=== PATIENT | female | born 1940 | race Caucasian/White ===

== ENCOUNTER → 2023-01-27 13:15 | Outpatient (CLI) | payer MEDICARE, SELFPAY ==
--- NOTE | 2023-01-27 14:03 | XR_ITS ---
FINAL REPORT CLINICAL HISTORY: dyspnea FINDINGS: TWO VIEW CHEST Cardiomegaly is present. The patient is status post median sternotomy. A left subclavian pacemaker is present. There is a moderate right pleural effusion. There is mild right base atelectasis. There is no pneumothorax. IMPRESSION: Moderate right pleural effusion. Mild right base atelectasis. Reviewed, Interpreted and Dictated by Cody Peoples III, MD Transcribed by Mauro Overton Authenticated and [facility]
[2023-01-27 14:26] LABS: Basophils # 0.1 K/mm3 (0-0.2); Basophils % 0.5 % (0.1-2.0); Eosinophils # 0.3 K/mm3 (0.0-0.4); Hematocrit 33.5 % (37.0-47.0); Hemoglobin 10.1 g/dL (12.2-16.2); Lymphocytes # 1.7 K/mm3 (0.7-4.5); Lymphocytes % 16.9 % (10-50); Mean Corpuscular Hemoglobin 24.4 pg (27.0-31.2); Mean Corpuscular Volume 81.3 fl (81-99); Mean Platelet Volume 7.3 fl (7.4-10.4); Monocytes # 0.4 K/mm3 (0.1-1.0); Monocytes % 4.3 % (1.7-9.3); Neutrophils # 7.4 K/mm3 (1.8-7.8); Neutrophils % 75.3 % (37.0-80.0); Platelet Count 376 K/mm3 (142-424); Red Blood Count 4.12 M/mm3 (4.20-5.40); Red Cell Distribution Width 16.1 % (11.5-17.5); White Blood Count 9.9 K/mm3 (4.8-10.8)
[2023-01-27 15:00] LABS: Alanine Aminotransferase 12 U/L (12-78); Albumin Level 3.3 g/dl (3.5-5.0); Alkaline Phosphatase 98 U/L (38-126); Aspartate Amino Transferase 20 U/L (14-36); Bilirubin,Total 0.4 mg/dl (0.2-1.3); Blood Urea Nitrogen 12 mg/dl (7-17); Calcium 8.9 mg/dl (8.4-10.2); Carbon Dioxide 38 mmol/L (22.0-30.0); Chol/HDL Ratio 2.5 (1-3.5); Cholesterol 118 mg/dl (140-200); Estimated Glomerular Filt Rate 48 ml/min (>60); GFR (African American) 58 ML/MIN (>60); Glucose 88 mg/dl (74-100); HDL Cholesterol 48 mg/dl (40-60); Magnesium 1.7 mg/dl (1.6-2.3); Potassium 3.8 mmoL/L (3.5-5.1); Sodium 138 mmol/L (136-145); Total Protein,Serum 6.7 g/dl (6.3-8.2); Triglycerides 135 mg/dl (30-150); VLDL Cholesterol 27 mg/dL (0-40)
[2023-01-27 15:09] LABS: NT Pro Brain Natriuretic Pep. 1630 pg/mL (0-450)
[2023-01-27 15:11] LABS: Direct LDL Cholesterol 44.18 mg/dL (100-129)
[2023-01-27 15:31] LABS: Thyroid Stimulating Hormone 0.84 uIU/mL (0.465-4.68)
[2023-01-27 19:08] LABS: Anion Gap 8.8 mEq/L (5-15); Chloride 95 mmol/L (98-107)
[2023-01-28 00:03] LABS: Bilirubin,Direct 0.3 mg/dl (0.0-0.4); Bilirubin,Unconjugated 0.2 mg/dL (0.0-1.1)
[2023-01-28 00:04] LABS: Bilirubin,Indirect 0.1 mg/dL (0.0-0.9)
== END ==
PROVIDERS: Visit Provider Internal Medicine
DX: R06.00 Dyspnea, unspecified (principal); I50.9 Heart failure, unspecified; R07.9 Chest pain, unspecified; R94.31 Abnormal electrocardiogram [ECG] [EKG]; Z95.0 Presence of cardiac pacemaker; Z99.81 Dependence on supplemental oxygen
CPT/HCPCS: 36415; 71046; 80048; 80061; 80076; 83735; 83880; 84439; 84443; 85025

== ENCOUNTER → 2023-01-29 14:09 | Outpatient (CLI) | payer MEDICARE, SELFPAY | LOC: RT 14:09 | PROVIDERS: Visit Provider Internal Medicine | DX: I50.9 Heart failure, unspecified (principal); R06.00 Dyspnea, unspecified; R07.9 Chest pain, unspecified; R94.31 Abnormal electrocardiogram [ECG] [EKG]; Z95.0 Presence of cardiac pacemaker; Z99.81 Dependence on supplemental oxygen | CPT/HCPCS: 93306 ==

== ENCOUNTER → 2023-01-31 07:32 | Outpatient (CLI) | payer MEDICARE, SELFPAY | PROVIDERS: Visit Provider Internal Medicine | DX: R06.09 Other forms of dyspnea (principal) | CPT/HCPCS: 94060; 94726; 94729 ==

== ENCOUNTER 2023-02-01 18:27 | Emergency (ER) | payer MEDICARE, SELFPAY ==
[2023-02-01] VITALS (7 sets, daily range): BP systolic 124–147; BP diastolic 48–58; PULSE 60–73; RESP 14–19; TEMP 36.6; O2SAT 93–98; BMI 35.4
--- NOTE | 2023-02-01 18:38 | PC.NURSE ---
EMS reports giving 1 nitro and 324mg ASA. Patient states pre-medication pain 12/28. Post medication admin. 09/27
[2023-02-01 18:54] LABS: Basophils % 0.4 % (0.1-2.0); Eosinophils # 0.4 K/mm3 (0.0-0.4); Eosinophils % 4.2 % (0.1-12.0); Hematocrit 32.6 % (37.0-47.0); Hemoglobin 9.8 g/dL (12.2-16.2); Lymphocytes # 1.8 K/mm3 (0.7-4.5); Lymphocytes % 18.8 % (10-50); Mean Corpuscular Hemoglobin 24.2 pg (27.0-31.2); Mean Corpuscular Volume 80.7 fl (81-99); Mean Platelet Volume 7.2 fl (7.4-10.4); Monocytes # 0.5 K/mm3 (0.1-1.0); Monocytes % 5.5 % (1.7-9.3); Neutrophils # 6.9 K/mm3 (1.8-7.8); Neutrophils % 71.1 % (37.0-80.0); Platelet Count 344 K/mm3 (142-424); Red Blood Count 4.03 M/mm3 (4.20-5.40); Red Cell Distribution Width 16.4 % (11.5-17.5); White Blood Count 9.7 K/mm3 (4.8-10.8)
[2023-02-01 18:55] LABS: Chloride 92 mmol/L (98-107); Potassium 3.5 mmoL/L (3.5-5.1); Sodium 139 mmol/L (136-145)
[2023-02-01 18:57] LABS: Blood Urea Nitrogen 14 mg/dl (7-17); Creatinine Clearance Estimated 61 mL/min (50-200); Estimated Glomerular Filt Rate 43 ml/min (>60); GFR (African American) 52 ML/MIN (>60)
[2023-02-01 18:58] LABS: Alanine Aminotransferase 14 U/L (12-78); Albumin Level 3.2 g/dl (3.5-5.0); Albumin/Globulin Ratio 0.8 (1.1-1.8); Alkaline Phosphatase 95 U/L (38-126); Aspartate Amino Transferase 23 U/L (14-36); Bilirubin,Total 0.3 mg/dl (0.2-1.3); Calcium 8.4 mg/dl (8.4-10.2); Globulin 3.8 g/dL (1.3-3.2); Glucose 104 mg/dl (74-100)
--- NOTE | 2023-02-01 18:59 | XR_ITS ---
PROCEDURE INFORMATION: Exam: XR Chest Exam date and time: 02/01/2023 7:07 PM Age: 82 years old Clinical indication: Dyspnea; Prior surgery; Surgery date: <1 month; Surgery type: Pacemaker TECHNIQUE: Imaging protocol: Radiologic exam of the chest. Views: 1 view. Total images: 1 COMPARISON: CR XR CHEST 2V 01/27/2023 2:13 PM FINDINGS: Tubes, catheters and devices: Status post left subclavian cardiac pacer. Leads project in the right atrium and right ventricle respectively. Lungs: Similar right basilar atelectasis or consolidation. Increasing left basilar atelectasis. Suspect component of mild central vascular congestion. Similar right upper lobe fibrotic scarring, retraction and distortion. Pleural spaces: Stable moderate right pleural effusion. Suspect new small left pleural effusion. No pneumothorax. Biapical pleural thickening. Heart/Mediastinum: Stable mild cardiomegaly. No mediastinal widening. Vasculature: Atherosclerotic aortic arch. Bones/joints: Status post median sternotomy. Osteopenia. IMPRESSION: 1. Stable moderate right pleural effusion with adjacent basilar atelectasis or consolidation. 2. New or increasing small left pleural effusion. 3. Increasing left basilar atelectasis 4. Suspect new mild central vascular congestion/edema.
--- NOTE | 2023-02-01 18:59 | HMH.EDGENADL ---
Discharge Plan Disposition Patient Disposition: Home, Self-Care Prescriptions Prescriptions: No Action ipratropium-albuterol 0.5 mg-3 mg(2.5 mg base)/3 mL solution for nebulization 3 ml inhalation Q6H PRN ferrous sulfate 325 mg (65 mg iron) tablet 325 mg PO DAILY aspirin 81 mg tablet 81 mg PO DAILY budesonide-formoterol 80-4.5 mcg/actuation HFA aerosol inhaler 2 puff inhalation BID vitamin E (dl, acetate) 180 mg (400 unit) capsule 180 mg PO DAILY calcium carb,glucon-vitamin D2 500 mg-5 mcg (200 unit) tablet PO mecobalamin (vitamin B12) 5,000 mcg tablet,chewable 5,000 mcg PO DAILY apixaban 5 mg tablet 5 mg PO BID Qty: 60 5RF atorvastatin 40 mg tablet 40 mg PO DAILY Qty: 30 5RF bisoprolol fumarate 10 mg tablet 10 mg PO DAILY Qty: 30 3RF Farxiga 5 mg tablet 5 mg PO DAILY Qty: 30 5RF ezetimibe 10 mg tablet 10 mg PO DAILY Qty: 30 5RF metolazone 2.5 mg tablet 2.5 mg PO DAILY Qty: 30 2RF torsemide 20 mg tablet 20 mg PO DAILY Qty: 30 2RF Referrals Follow up/Referrals: Provider,Referral, MD [Primary Care Provider] - See instructions Activity Restrictions/Add. Instructions Additional Instructions/Restrictions: There is no evidence of an acute myocardial infarction or myocardial injury or any other cardiopulmonary emergency. Please follow-up with Dr. Mooney at your earliest convenience and return with any worsening shortness of breath chest pain or shoulder pain that you are concerned about. Clinical Impressions Clinical Impression: Acute shoulder pain Discharge ED Provider: Jaspreet Weber General Adult HPI General Chief complaint: Extremity Problem,Nontraumatic Stated complaint: Shoulder pain Time Seen by Provider: 02/01/23 18:53 Mode of Arrival: EMS Source of Information: Patient Limitations: No Limitations Description of Symptoms (Recalled from ER Triage Doc. by RN): Presents to ED with complaints of RUE pain that started at approx. 0730 this morning. Patient further reports having an SC in 2018. Aspirin 324mg and 1 nitro given MAT TESTER with relief. Patient denies SOB. Patient does report having a pacer and is on 3L NC at home. History of Present Illness HPI narrative: Patient is an 82-year-old female here with right shoulder pain that is since resolved. She is from [place] and is recently moved to the [facility]. She states that in 2018 when she had similar symptoms she was found to have an SC ultimately leading to a multivessel bypass which was done in [place]. Most recently she had a pacemaker that was placed by senior integration developer in [place]. She before today has been asymptomatic for an extended period of time and actually followed up with Dr. Mooney when she first moved here. She states that this morning around 7 AM she intermittently had some right arm achiness that became constant around 3 PM that lasted just up until her evaluation by me. She denies any chest pain shortness of breath diaphoresis nausea radiation etc. Symptoms are completely resolved at this point. No chest pain or shortness of breath or shoulder pain. This was nonexertional. Related Data Home Medications Medication Instructions Recorded Confirmed aspirin 81 mg tablet 81 mg PO DAILY 01/27/23 01/30/23 budesonide-formoterol HFA 80 2 puff inhalation BID 01/27/23 01/30/23 mcg-4.5 mcg/actuation aerosol inhaler calcium carb,calcium gluconate 500 tab PO 01/27/23 01/30/23 mg-vit D2 5 mcg (200 unit) tablet ferrous sulfate 325 mg (65 mg 325 mg PO DAILY 01/27/23 01/30/23 iron) tablet ipratropium 0.5 mg-albuterol 3 mg 3 ml inhalation Q6H PRN 01/27/23 01/30/23 (2.5 mg base)/3 mL nebulization soln mecobalamin (vitamin B12) 5,000 5,000 mcg PO DAILY 01/27/23 01/30/23 mcg chewable tablet vitamin E (dl, acetate) 180 mg 180 mg PO DAILY 01/27/23 01/30/23 (400 unit) capsule Previous Rx's Medication Instructions Recorded apixaban 5 mg tablet 5 m
--- NOTE | 2023-02-01 19:04 | ECG_ITS ---
APPROVED REPORT Exam: Resting ECG HR:68 bpm ECG Measurements Heart Rate [address] 172 P 208 QRSd 94 QRS 13 QT 388 T 31 QTc 406 Conclusion ELECTRONIC ATRIAL PACEMAKER ABNORMAL RHYTHM ECG UNCONFIRMED REPORT Electronically signed by : Ruben Johnson MD 02/02/2023 06:58:53
[2023-02-01 19:14] LABS: Anion Gap 5.5 mEq/L (5-15); Carbon Dioxide 45 mmol/L (22.0-30.0); Troponin I < 0.01 ng/ml (0.00-0.034)
--- NOTE | 2023-02-01 19:36 | PC.NURSE ---
Rounded on pt. Med list returned to pt. No other needs voiced.
--- NOTE | 2023-02-01 21:23 | PC.NURSE ---
Dr. Weber at BS speaking with pt/visitor
--- NOTE | 2023-02-01 21:44 | PC.NURSE ---
Second trop drawn and sent to LAB
[2023-02-01 22:30] LABS: Troponin I < 0.01 ng/ml (0.00-0.034)
== END 2023-02-01 22:54 | disposition home or self-care (01) ==
PROVIDERS: Emergency Provider Student in an Organized Health Care Education/Training Program
DX: M25.511 Pain in right shoulder (principal); I50.9 Heart failure, unspecified; D64.9 Anemia, unspecified; I25.2 Old myocardial infarction; Z95.0 Presence of cardiac pacemaker
CPT/HCPCS: 71045; 80053; 84484; 85025; 93005; 93041; 99285

== ENCOUNTER 2023-02-08 16:28 | Observation (INO) | payer MEDICARE, SELFPAY ==
[2023-02-08] VITALS (12 sets, daily range): BP systolic 67–127; BP diastolic 33–62; PULSE 60–80; RESP 18–20; TEMP 36.7–36.8; O2SAT 96–100; BMI 34.0; BMI 33.4
--- NOTE | 2023-02-08 16:46 | ECG_ITS ---
APPROVED REPORT Exam: Resting ECG HR:65 bpm ECG Measurements Heart Rate 65 AXES DE 187 P 253 QRSd 109 QRS 42 QT 349 T 31 QTc 361 Conclusion ELECTRONIC ATRIAL PACEMAKER ABNORMAL ECG UNCONFIRMED REPORT Electronically signed by : Ruben Johnson MD 02/09/2023 08:43:31
--- NOTE | 2023-02-08 16:54 | XR_ITS ---
PROCEDURE INFORMATION: Exam: XR Chest Exam date and time: 02/08/2023 4:58 PM Age: 82 years old Clinical indication: Other: Syncope TECHNIQUE: Imaging protocol: Radiologic exam of the chest. Views: 1 view. COMPARISON: CR XR CHEST PORTABLE 02/01/2023 7:07 PM FINDINGS: Tubes, catheters and devices: A pulse generator device is present, and its leads are in appropriate position. Lungs: There is diffuse prominence of the interstitial markings. Pleural spaces: Unchanged bilateral pleural effusions Heart/Mediastinum: Postoperative changes from prior coronary artery bypass graft. Cardiomegaly noted. Bones/joints: Sternotomy wires are intact. IMPRESSION: Findings can be attributed to interstitial edema in the appropriate clinical context.
--- NOTE | 2023-02-08 17:03 | CT_ITS ---
PROCEDURE INFORMATION: Exam: CT Head Without Contrast Exam date and time: 02/08/2023 5:36 PM Age: 82 years old Clinical indication: Injury or trauma; Fall; Blunt trauma (contusions or hematomas); Additional info: Fall anticoag TECHNIQUE: Imaging protocol: Computed tomography of the head without contrast. Radiation optimization: All CT scans at this facility use at least one of these dose optimization techniques: automated exposure control; mA and/or kV adjustment per patient size (includes targeted exams where dose is matched to clinical indication); or iterative reconstruction. REPORTING DATA: Count of CT and Cardiac NM exams in prior 12 months: This patient has received 0 known CTs and 0 known cardiac nuclear medicine studies in the 12 months prior to the current study. COMPARISON: No relevant prior studies available. FINDINGS: Brain: There is no evidence of acute intracranial hemorrhage, extra-axial collection or locoregional mass effect. There are scattered hypodensities in the periventricular and subcortical white matter. The appearance is nonspecific, but most likely represents chronic small vessel disease in a person of this age Cerebral ventricles: The ventricles, sulci and cisterns are normal in size and configuration for patient's age. No hydrocephalus or midline structure shift Pituitary gland and sella: Sellar/parasellar structures, craniocervical junction and orbits are unremarkable Paranasal sinuses: Scattered mucosal thickening throughout the paranasal sinuses. Mastoid air cells: Visualized mastoid air cells are well aerated. Bones/joints: No calvarial fracture Soft tissues: Unremarkable. IMPRESSION: No acute intracranial abnormality. No calvarial fracture.
--- NOTE | 2023-02-08 17:03 | CT_ITS ---
PROCEDURE INFORMATION: Exam: CT Cervical Spine Without Contrast Exam date and time: 02/08/2023 5:38 PM Age: 82 years old Clinical indication: Injury or trauma; Fall; Blunt trauma; Additional info: Fall anticoag TECHNIQUE: Imaging protocol: Computed tomography of the cervical spine without contrast. Radiation optimization: All CT scans at this facility use at least one of these dose optimization techniques: automated exposure control; mA and/or kV adjustment per patient size (includes targeted exams where dose is matched to clinical indication); or iterative reconstruction. REPORTING DATA: Count of CT and Cardiac NM exams in prior 12 months: This patient has received 0 known CTs and 0 known cardiac nuclear medicine studies in the 12 months prior to the current study. COMPARISON: CT HEAD/BRAIN WO CON 02/08/2023 5:36 PM FINDINGS: Bones/joints: Vertebral alignment is maintained. There is preservation of vertebral body heights. Facet joints are aligned. Odontoid process is intact. Atlantoaxial interval maintained. No acute fracture. Uncovertebral and facet arthropathy result in varying degrees of neural foraminal narrowing at multiple levels. Paranasal sinuses: Scattered mucosal thickening throughout the paranasal sinuses. Lungs: Interstitial changes noted in pulmonary apices Soft tissues: Prevertebral and paravertebral soft tissues are maintained IMPRESSION: No acute fracture. No traumatic subluxation.
--- NOTE | 2023-02-08 17:04 | HMH.EDGENADL ---
Discharge Plan Disposition Patient Disposition: Admitted Condition: Fair Chief Complaint: Syncope Prescriptions Prescriptions: No Action ipratropium-albuterol 0.5 mg-3 mg(2.5 mg base)/3 mL solution for nebulization 3 ml inhalation Q6H PRN ferrous sulfate 325 mg (65 mg iron) tablet 325 mg PO DAILY aspirin 81 mg tablet 81 mg PO DAILY budesonide-formoterol 80-4.5 mcg/actuation HFA aerosol inhaler 2 puff inhalation BID vitamin E (dl, acetate) 180 mg (400 unit) capsule 180 mg PO DAILY calcium carb,glucon-vitamin D2 500 mg-5 mcg (200 unit) tablet PO mecobalamin (vitamin B12) 5,000 mcg tablet,chewable 5,000 mcg PO DAILY apixaban 5 mg tablet 5 mg PO BID Qty: 60 5RF atorvastatin 40 mg tablet 40 mg PO DAILY Qty: 30 5RF bisoprolol fumarate 10 mg tablet 10 mg PO DAILY Qty: 30 3RF Farxiga 5 mg tablet 5 mg PO DAILY Qty: 30 5RF ezetimibe 10 mg tablet 10 mg PO DAILY Qty: 30 5RF metolazone 2.5 mg tablet 2.5 mg PO DAILY Qty: 30 2RF torsemide 20 mg tablet 20 mg PO DAILY Qty: 30 2RF Referrals Follow up/Referrals: Provider,Referral, MD [Primary Care Provider] - See instructions Clinical Impressions Clinical Impression: Acute hypokalemia, Syncope, vasovagal, Orthostasis Discharge ED Provider: Jaret Barrett General Adult HPI General Chief complaint: Syncope Stated complaint: syncope Time Seen by Provider: 02/08/23 17:02 Mode of Arrival: EMS Source of Information: Patient and EMS Limitations: No Limitations Description of Symptoms (Recalled from ER Triage Doc. by RN): c/o syncope x2 at home prior to arrival, states that her left FA above left eye she thinks she hit the floor with, denies any other injuries at this time. pacemaker placed 3 weeks ago History of Present Illness HPI narrative: Patient is a 82-year-old female with past medical history of recent pacemaker placement 3 weeks ago, CHF on diuretics who presents emergency department for evaluation of syncope. History provided by patient at bedside. Patient radha from a seated position on her way to the bathroom twice today when she had episodes of syncope falling to the ground. Unknown trauma. Patient denies any acute pain. She is on anticoagulants for her pacemaker. Currently just feels generally weak however no specific complaints. Denies abdominal pain, vomiting, chest pain, other acute complaints at this time. Per chart review of recent cardiology note patient was started on torsemide and metolazone recently. Related Data Home Medications Medication Instructions Recorded Confirmed aspirin 81 mg tablet 81 mg PO DAILY 01/27/23 01/30/23 budesonide-formoterol HFA 80 2 puff inhalation BID 01/27/23 01/30/23 mcg-4.5 mcg/actuation aerosol inhaler calcium carb,calcium gluconate 500 tab PO 01/27/23 01/30/23 mg-vit D2 5 mcg (200 unit) tablet ferrous sulfate 325 mg (65 mg 325 mg PO DAILY 01/27/23 01/30/23 iron) tablet ipratropium 0.5 mg-albuterol 3 mg 3 ml inhalation Q6H PRN 01/27/23 01/30/23 (2.5 mg base)/3 mL nebulization soln mecobalamin (vitamin B12) 5,000 5,000 mcg PO DAILY 01/27/23 01/30/23 mcg chewable tablet vitamin E (dl, acetate) 180 mg 180 mg PO DAILY 01/27/23 01/30/23 (400 unit) capsule Previous Rx's Medication Instructions Recorded apixaban 5 mg tablet 5 mg PO BID #60 tabs 01/27/23 atorvastatin 40 mg tablet 40 mg PO DAILY #30 tabs 01/27/23 bisoprolol fumarate 10 mg tablet 10 mg PO DAILY #30 tabs 01/27/23 dapagliflozin propanediol 5 mg 5 mg PO DAILY #30 tabs 01/27/23 tablet (Farxiga) ezetimibe 10 mg tablet 10 mg PO DAILY #30 tabs 01/27/23 metolazone 2.5 mg tablet 2.5 mg PO DAILY #30 tabs 01/28/23 torsemide 20 mg tablet 20 mg PO DAILY #30 tabs 01/28/23 Allergies Allergy/AdvReac Type Severity Reaction Status Date / Time prednisone AdvReac Verified 01/30/23 13:18 [facility] Disclaimer: The information contained in this section
[2023-02-08 17:12] LABS: Basophils # 0.1 K/mm3 (0-0.2); Basophils % 0.4 % (0.1-2.0); Eosinophils # 0.3 K/mm3 (0.0-0.4); Hematocrit 34.8 % (37.0-47.0); Hemoglobin 10.8 g/dL (12.2-16.2); Lymphocytes # 1.7 K/mm3 (0.7-4.5); Mean Corpuscular HGB Conc 31.1 g/dL (31.8-35.4); Mean Corpuscular Hemoglobin 24.4 pg (27.0-31.2); Mean Corpuscular Volume 78.3 fl (81-99); Mean Platelet Volume 7.7 fl (7.4-10.4); Monocytes # 0.9 K/mm3 (0.1-1.0); Monocytes % 6.7 % (1.7-9.3); Neutrophils # 9.9 K/mm3 (1.8-7.8); Neutrophils % 77.9 % (37.0-80.0); Platelet Count 418 K/mm3 (142-424); Red Blood Count 4.44 M/mm3 (4.20-5.40); Red Cell Distribution Width 16.2 % (11.5-17.5); White Blood Count 12.7 K/mm3 (4.8-10.8)
[2023-02-08 17:19] LABS: Alanine Aminotransferase 14 U/L (12-78); Albumin Level 3.5 g/dl (3.5-5.0); Albumin/Globulin Ratio 0.9 (1.1-1.8); Alkaline Phosphatase 111 U/L (38-126); Aspartate Amino Transferase 26 U/L (14-36); Bilirubin,Total 0.8 mg/dl (0.2-1.3); Blood Urea Nitrogen 35 mg/dl (7-17); Calcium 8.8 mg/dl (8.4-10.2); Chloride 77 mmol/L (98-107); Creatinine Clearance Estimated 44 mL/min (50-200); Estimated Glomerular Filt Rate 31 ml/min (>60); GFR (African American) 38 ML/MIN (>60); Glucose 121 mg/dl (74-100); Sodium 134 mmol/L (136-145); Total Protein,Serum 7.5 g/dl (6.3-8.2)
--- NOTE | 2023-02-08 17:27 | PC.NURSE ---
Addendum entered by Eve Mckeon RN 02/08/23 17:27: bs Original Note: rounded on pt, family at bw
[2023-02-08 17:28] LABS: Anion Gap 11.4 mEq/L (5-15); Carbon Dioxide 48 mmol/L (22.0-30.0)
[2023-02-08 17:29] LABS: Potassium 2.4 mmoL/L (3.5-5.1)
--- NOTE | 2023-02-08 17:29 | PC.NURSE ---
aware of K+ of 2.4
[2023-02-08 17:30] LABS: Troponin I 0.02 ng/ml (0.00-0.034)
--- NOTE | 2023-02-08 18:06 | PC.NURSE ---
called house for admission
--- NOTE | 2023-02-08 18:48 | PC.NURSE ---
report called to gildardo barba on second floor
--- NOTE | 2023-02-08 18:51 | ECG_ITS ---
APPROVED REPORT Exam: Resting ECG HR:98 bpm ECG Measurements Heart Rate 98 AXES QRSd 113 QRS 50 QT 301 T 4 QTc 357 Conclusion ATRIAL FIBRILLATION WITH ABERRANT CONDUCTION OR VENTRICULAR PREMATURE COMPLEXES Old inferior changes Patient with prior history of pacemaker and apparent electronic interference/artifact-questionable pacemaker malfunction? ABNORMAL ECG UNCONFIRMED REPORT Electronically signed by : Ruben Johnson MD 02/09/2023 08:43:07
--- NOTE | 2023-02-08 18:57 | PC.NURSE ---
Dr Barrett speaking to Dr Mooney
--- NOTE | 2023-02-08 19:50 | PC.NURSE ---
1900 RECEIVED REPORT FROM Dante SEVERINO RN/MED SURG WHO RECEIVED REPORT FROM ED NURSE. PATIENT ARRIVED TO THE FLOOR AT 1950 PER W/C.
--- NOTE | 2023-02-08 19:52 | PC.NURSE ---
Pt arrived to floor via wheelchair @ 1948
[2023-02-08 20:09] LABS: Blood Urea Nitrogen 33 mg/dl (7-17); Calcium 8.4 mg/dl (8.4-10.2); Chloride 77 mmol/L (98-107); Creatinine Clearance Estimated 41 mL/min (50-200); Estimated Glomerular Filt Rate 29 ml/min (>60); GFR (African American) 35 ML/MIN (>60); Glucose 159 mg/dl (74-100); Sodium 134 mmol/L (136-145)
[2023-02-08 20:17] LABS: Anion Gap 9.8 mEq/L (5-15)
[2023-02-08 20:18] LABS: Potassium 2.8 mmoL/L (3.5-5.1)
[2023-02-08 20:19] LABS: Carbon Dioxide 50 mmol/L (22.0-30.0)
--- NOTE | 2023-02-08 20:45 | EXP.HP ---
History of Present Illness *Admission Date: 02/08/23 *Reason for visit:: syncope/hypokalemia *History of present illness: 82 year old female presented to the ED today after falling twice today. PMHX of recent PPM placement, CHF, blood thinner use, HLD, HTN, COPD, and Anemia. The patient states she fell twice while standing up. She was recently started on torsemide and metolazone. Pt c/o hitting head during fall. ED work consisted of CT of head spine, basic blood work, cardiac work up and orthostatic blood pressures. Her head and spine CT was unremarkable for trauma or hemorrhage. Blood work revealed leukocytosis, anemia, hypokalemia, LAURA, and negative troponins. Her EKG demonstrates atrial pacemaker w/ tachycardia. She is orthostatic positive with BP dropping to 67/33 when changing positions from sitting to standing. She was given potassium replacement therapy and the ED physician spoke with the hospitalist team regrading admission. She was admitted to the medical floor. Denies any pain and appears to be in no acute distress. Will have cardiology consult placed, monitor BMP, and be in fall precautions. [facility] Disclaimer: The information contained in this section may have been updated after the patient was seen, as this information can be updated by other users. Medical History (Updated 02/08/23 @ 21:10 by CURTIS Nix) Abnormal electrocardiogram [ECG] [EKG] Anemia Basal cell carcinoma Cardiac pacemaker in situ Cataract Chest pain CHF (congestive heart failure) Dependence on continuous supplemental oxygen Dyspnea Pain of left great toe Family History (Updated 02/08/23 @ 20:14 by Talita Estes RN) Mother Family history of hypertension Basal cell adenoma Brother Family history of hypertension Other Family history of cancer Social History (Updated 02/08/23 @ 20:16 by Talita Estes RN) Smoking Status: Former smoker alcohol intake: never current occupational status: retired Travel in the last 8 weeks: None adopted: No caregiver/support person: Yes (aman louis/sachin) Review of Systems Review of Systems Review of systems:: pertinent systems reviewed and negative unless documented below Constitutional Constitutional: Reports system reviewed and no additional complaints, except as documented and Reports as per HPI Eyes Eyes: Reports system reviewed and no additional complaints, except as documented ENT Ears, Nose, Mouth, and Throat: Reports system reviewed and no additional complaints, except as documented *Cardiovascular Cardiovascular: Reports system reviewed and no additional complaints, except as documented and Denies chest pain *Respiratory Respiratory: Reports system reviewed and no additional complaints, except as documented *Gastrointestinal Gastrointestinal: Reports system reviewed and no additional complaints, except as documented *Genitourinary Genitourinary: Reports system reviewed and no additional complaints, except as documented *Musculoskeletal Musculoskeletal: Reports as per HPI Integumentary/Breasts Skin/Breast: Reports system reviewed and no additional complaints, except as documented *Neurologic Neurologic: Reports system reviewed and no additional complaints, except as documented Meds Home Medications and Allergies Home Medications Medication Instructions Recorded Confirmed Type aspirin 81 mg tablet 81 mg PO DAILY heart 01/27/23 02/08/23 History budesonide-formoterol HFA 80 2 puff inhalation BID SOA\ 01/27/23 02/08/23 History mcg-4.5 mcg/actuation aerosol inhaler calcium carb,calcium gluconate 500 tab PO 01/27/23 01/30/23 History mg-vit D2 5 mcg (200 unit) tablet ferrous sulfate 325 mg (65 mg 325 mg PO DAILY anemia 01/27/23 02/08/23 History iron) tablet ipratropium 0.5 mg-albuterol 3 mg 3 ml inhalation Q6H PRN SOA 01/27/23 02/08/23 History (2.5 mg base)/3 mL nebulization soln mecobalamin (vitamin B12) 5,000 5,000 mcg PO DAILY b12 deficient 0
[2023-02-08 20:50] LABS: Troponin I 0.02 ng/ml (0.00-0.034)
--- NOTE | 2023-02-08 21:04 | PC.NURSE ---
LAB REPORTS CRITICAL LABS: POTASSIUM 2.8 AND C02 50. RADHA LARIOS NOTIFIED.
[2023-02-08 23:45] LABS: Troponin I 0.02 ng/ml (0.00-0.034)
[2023-02-09] VITALS (14 sets, daily range): BP systolic 120–151; BP diastolic 44–84; PULSE 60–77; RESP 16–18; TEMP 36.6–36.8; O2SAT 94–98; BMI 34.6
[2023-02-09 00:22] LABS: Chloride 80 mmol/L (98-107); Sodium 136 mmol/L (136-145)
[2023-02-09 00:25] LABS: Blood Urea Nitrogen 36 mg/dl (7-17); Calcium 8.2 mg/dl (8.4-10.2); Creatinine Clearance Estimated 43 mL/min (50-200); Estimated Glomerular Filt Rate 31 ml/min (>60); GFR (African American) 38 ML/MIN (>60); Glucose 156 mg/dl (74-100)
[2023-02-09 00:35] LABS: Anion Gap 10.9 mEq/L (5-15); Carbon Dioxide 48 mmol/L (22.0-30.0)
[2023-02-09 00:36] LABS: Potassium 2.9 mmoL/L (3.5-5.1)
--- NOTE | 2023-02-09 00:49 | PC.NURSE ---
LAB CALLED CRITICAL LABS: POTASSIUM 2.9 AND C02 48. LABS REPORTED TO RADHA Leahy
--- NOTE | 2023-02-09 01:03 | PC.NURSE ---
PATIENT DECLINED NEB TREATMENTS Earlier. recieved potassium 20meq/100 ml IVPB 2 RUNS TOTAL. ICE PACK HAD TO BE APPLIED TO ARM DUE TO PAIN CAUSED BY THE POTASSIUM EVEN THOUGH RUN CONCURRENTLY WITH LR. 02 SAT 94% ON 3LNC. NO RESP DISTRESS NOTED. RESTING QUIETLY AT THIS TIME
[2023-02-09 03:23] LABS: Chloride 85 mmol/L (98-107); Sodium 134 mmol/L (136-145)
[2023-02-09 03:26] LABS: Blood Urea Nitrogen 33 mg/dl (7-17); Creatinine Clearance Estimated 46 mL/min (50-200); Estimated Glomerular Filt Rate 33 ml/min (>60); GFR (African American) 40 ML/MIN (>60)
[2023-02-09 03:27] LABS: Calcium 8.1 mg/dl (8.4-10.2); Glucose 101 mg/dl (74-100); Magnesium 1.9 mg/dl (1.6-2.3)
[2023-02-09 03:35] LABS: Carbon Dioxide 40 mmol/L (22.0-30.0)
--- NOTE | 2023-02-09 03:39 | PC.NURSE ---
LAB CALLED WITH CRITICAL LAB VALUE POTASSIUM 3.0. Brenton LARIOS.Ita. NOTIFIED.
[2023-02-09 07:36] LABS: Blood Urea Nitrogen 30 mg/dl (7-17); Chloride 85 mmol/L (98-107); Creatinine Clearance Estimated 47 mL/min (50-200); Estimated Glomerular Filt Rate 33 ml/min (>60); GFR (African American) 40 ML/MIN (>60); Glucose 98 mg/dl (74-100); Sodium 137 mmol/L (136-145)
[2023-02-09 07:39] LABS: Basophils % 0.3 % (0.1-2.0); Eosinophils # 0.4 K/mm3 (0.0-0.4); Eosinophils % 3.8 % (0.1-12.0); Lymphocytes # 1.8 K/mm3 (0.7-4.5); Lymphocytes % 18.6 % (10-50); Mean Corpuscular HGB Conc 30.2 g/dL (31.8-35.4); Mean Corpuscular Hemoglobin 24.3 pg (27.0-31.2); Mean Corpuscular Volume 80.5 fl (81-99); Mean Platelet Volume 7.5 fl (7.4-10.4); Monocytes # 0.7 K/mm3 (0.1-1.0); Monocytes % 7.3 % (1.7-9.3); Neutrophils # 6.9 K/mm3 (1.8-7.8); Platelet Count 306 K/mm3 (142-424); Red Blood Count 3.85 M/mm3 (4.20-5.40); Red Cell Distribution Width 16.2 % (11.5-17.5); White Blood Count 9.8 K/mm3 (4.8-10.8)
[2023-02-09 07:51] LABS: Anion Gap 4.9 mEq/L (5-15)
[2023-02-09 07:52] LABS: Carbon Dioxide 50 mmol/L (22.0-30.0); Potassium 2.9 mmoL/L (3.5-5.1)
[2023-02-09 07:53] LABS: Hemoglobin 9.5 g/dL (12.2-16.2)
[2023-02-09 08:35] LABS: Microscopic, Urine URINE MICROSCOPIC (MICROSCOPIC)
[2023-02-09 08:40] LABS: Appearance,Urine CLEAR (Clear); Bilirubin,Urine Negative (Negative); Blood, Urine Negative (Negative); Color,Urine YELLOW (Yellow); Glucose,Urine (UA) 2+ (Negative); Ketones,Urine Negative (Negative); Leukocyte Esterase,Urine 1+ (Negative); Nitrate,Urine Negative (Negative); PH,Urine 6.5 (5.0-8.5); Protein,Urine Negative (Negative)
[2023-02-09 08:54] LABS: Bacteria,Urine 1+ /lpf; Squamous Epithelial Cell,Urine Occasional #/hpf (0-5); Yeast,Urine 1+ /lpf
[2023-02-09 11:57] LABS: POC Glucose,Bedside 129 (70-110)
--- NOTE | 2023-02-09 13:42 | EXP.ACUTE.PN ---
Subjective *Date: 02/09/23 *Time: 13:42 Interval history: No overnight episode of lightheadedness or postural dizziness or syncope Patient states she feels better today. No palpitations or chest pain Medical Exam Vital signs and Labs for Last 24 Hours: Vital Signs Temp Pulse Pulse Pulse Pulse Pulse Resp 02/09/23 11:55 74 02/09/23 11:55 70 02/09/23 11:55 02/09/23 11:00 02/09/23 10:53 98.2 F 61 18 02/09/23 08:00 02/09/23 09:00 02/09/23 06:20 60 02/09/23 06:20 62 02/09/23 06:20 02/09/23 07:18 98.3 F 69 16 02/09/23 06:23 02/09/23 05:00 02/09/23 04:00 97.8 F 60 18 02/09/23 04:00 60 02/09/23 03:00 02/09/23 01:00 02/09/23 00:00 97.8 F 60 16 02/09/23 00:00 62 02/08/23 23:00 02/08/23 21:00 02/08/23 20:00 02/08/23 20:00 60 02/08/23 19:55 98.2 F 60 20 02/08/23 19:47 98.1 F 68 18 02/08/23 18:30 67 02/08/23 18:17 61 02/08/23 18:03 62 18 02/08/23 17:12 80 02/08/23 17:10 71 02/08/23 17:09 73 02/08/23 16:45 75 02/08/23 17:20 73 71 80 02/08/23 16:28 98.1 F 61 18 BP BP BP BP BP Pulse Ox O2 Del Method 02/09/23 11:55 02/09/23 11:55 02/09/23 11:55 97 Nasal Cannula 02/09/23 11:00 Nasal Cannula 02/09/23 10:53 125/49 L 98 Nasal Cannula 02/09/23 08:00 Nasal Cannula 02/09/23 09:00 Nasal Cannula 02/09/23 06:20 02/09/23 06:20 02/09/23 06:20 98 Nasal Cannula 02/09/23 07:18 124/55 L 97 Nasal Cannula 02/09/23 06:23 Nasal Cannula 02/09/23 05:00 Nasal Cannula 02/09/23 04:00 129/57 L 94 L Nasal Cannula 02/09/23 04:00 02/09/23 03:00 Nasal Cannula 02/09/23 01:00 Nasal Cannula 02/09/23 00:00 151/68 H 94 L Room Air 02/09/23 00:00 02/08/23 23:00 Nasal Cannula 02/08/23 21:00 Nasal Cannula 02/08/23 20:00 99 Nasal Cannula 02/08/23 20:00 02/08/23 19:55 103/62 L 99 Nasal Cannula 02/08/23 19:47 121/54 L 02/08/23 18:30 121/50 L 100 Room Air 02/08/23 18:17 127/52 L 98 Room Air 02/08/23 18:03 125/50 L 98 02/08/23 17:12 67/33 L 97 Nasal Cannula 02/08/23 17:10 98/44 L 98 Nasal Cannula 02/08/23 17:09 123/52 L 97 Nasal Cannula 02/08/23 16:45 122/46 L 96 Nasal Cannula 02/08/23 17:20 123/52 L 98/44 L 67/33 L 02/08/23 16:28 122/46 L 97 Room Air O2 Flow Rate 02/09/23 11:55 02/09/23 11:55 02/09/23 11:55 3 02/09/23 11:00 3 02/09/23 10:53 3 02/09/23 08:00 3 02/09/23 09:00 3 02/09/23 06:20 02/09/23 06:20 02/09/23 06:20 3 02/09/23 07:18 3 02/09/23 06:23 3 02/09/23 05:00 3 02/09/23 04:00 3 02/09/23 04:00 02/09/23 03:00 3 02/09/23 01:00 3 02/09/23 00:00 02/09/23 00:00 02/08/23 23:00 3 02/08/23 21:00 3 02/08/23 20:00 3 02/08/23 20:00 02/08/23 19:55 3 02/08/23 19:47 02/08/23 18:30 02/08/23 18:17 02/08/23 18:03 02/08/23 17:12 3 02/08/23 17:10 3 02/08/23 17:09 3 02/08/23 16:45 3 02/08/23 17:20 02/08/23 16:28 Intake and Output 02/08/23 02/09/23 02/09/23 23:59 07:59 15:59 Intake Total 850 / 1241 1270 / 1630 360 / 1630 Output Total 300 / 300 Balance 850 / 1241 1270 / 1330 60 / 1330 Intake: Intake, Oral Amount 360 / 720 360 / 720 Intake, Other Amount 250 / 250 Intake, Total IV Amount 600 / 991 910 / 910 KCl 20mEq/100ml 100 ml @ 50 mls 100 / 200 100 / 100 /hr IV Q2H TENISHA Rx#:[id number] Lactated Ringers 1000ML 1,000 500 / 791 810 / 810 ml @ 500 mls/hr IV .Q2H TENISHA Rx# :[id number] Output: Output, Urine Amount 300 / 300 Other: Intake, Other Source Saline Solution Number of Unmeasured Voids 0 Weight 96.615 kg 9
--- NOTE | 2023-02-09 17:25 | PC.NURSE ---
PT IS RESTING IN BED. ALERT AND ORIENTED X4. EATING AND DRINKING WELL. LUNG SOUNDS DIMINISHED WITH LEFT SIDED CRACKLES. ABDOMEN SOFT/NON TENDER WITH ACTIVE BOWEL SOUNDS. PT HAS BEEN GETTING TO THE BSC WITH 1 ASSIST. PT STATES SHE STILL FEELS DIZZY WHEN STANDING. O2 SATURATION HAS MAINTAINED 90-95% ON 3 L NC. WILL CONTINUE TO MONITOR.
[2023-02-09 18:37] LABS: Blood Urea Nitrogen 25 mg/dl (7-17); Calcium 8.2 mg/dl (8.4-10.2); Chloride 88 mmol/L (98-107); Creatinine Clearance Estimated 51 mL/min (50-200); Estimated Glomerular Filt Rate 36 ml/min (>60); GFR (African American) 44 ML/MIN (>60); Glucose 148 mg/dl (74-100); Potassium 3.6 mmoL/L (3.5-5.1); Sodium 134 mmol/L (136-145)
[2023-02-09 18:45] LABS: Anion Gap 4.6 mEq/L (5-15); Carbon Dioxide 45 mmol/L (22.0-30.0)
[2023-02-10] VITALS (8 sets, daily range): BP systolic 131–148; BP diastolic 42–63; PULSE 60–80; RESP 16–22; TEMP 36.4–36.8; O2SAT 97–99; BMI 36.2
--- NOTE | 2023-02-10 04:34 | PC.NURSE ---
Patient has had a good night. Only issues RN had to increase NC to 4L NC. Patient dropped while asleep. no other issues have been noted by RN or patient
--- NOTE | 2023-02-10 06:01 | PC.NURSE ---
Pt refused a bath stated she would like to wait until after breakfast this AM
[2023-02-10 06:29] LABS: Blood Urea Nitrogen 20 mg/dl (7-17); Calcium 8.3 mg/dl (8.4-10.2); Chloride 91 mmol/L (98-107); Creatinine Clearance Estimated 57 mL/min (50-200); Estimated Glomerular Filt Rate 39 ml/min (>60); GFR (African American) 48 ML/MIN (>60); Glucose 100 mg/dl (74-100); Potassium 3.6 mmoL/L (3.5-5.1); Sodium 137 mmol/L (136-145)
[2023-02-10 06:33] LABS: Anion Gap 9.6 mEq/L (5-15)
[2023-02-10 06:55] LABS: Carbon Dioxide 48 mmol/L (22.0-30.0)
--- NOTE | 2023-02-10 09:00 | PC.NURSE ---
Attempted to titrate O2 down due to sats 97% on 3L. Pt declined and stated that she wears 3L @ home and O2 drops when she gets up to walk.
--- NOTE | 2023-02-10 09:26 | PC.NURSE ---
Courtesy Tech Note: rounded on pt. pt did not need any further assistance at his time.
--- NOTE | 2023-02-10 12:08 | EXP.CARD.CON ---
History of Present Illness History of Present Illness Consult date: 02/10/23 Requesting physician: Peña Amato Chief complaint: falls x2, syncope History of present illness: This is an 82-year-old white female presented to the emergency department after passing out and falling twice at home. The patient states that she was walking to the bathroom on both occasions where she just woke up on the floor. She states that she had no symptoms prior to the fall. She did hit her head during both of the falls. The patient reports that she was recently started on torsemide and metolazone. The patient was anemic, hypokalemic and had an acute kidney injury while in the emergency department. CT of her head and spine were unremarkable. She ruled out for an MN. The patient was orthostatic in the emergency department with her blood pressure dropping to 67/33 when she went from sitting to standing. The patient's diuretics have been held since she has been admitted. This morning she states that she is feeling great. She denies any chest pain or pressure. She denies any shortness of breath or edema. She denies any fever, chills, nausea, vomiting, diarrhea, PND orthopnea. She has had no dizziness or recurrent episodes of syncope. [facility] Disclaimer: The information contained in this section may have been updated after the patient was seen, as this information can be updated by other users. Medical History (Updated 02/10/23 @ 12:15 by Carmel Mukherjee APRN) Abnormal electrocardiogram [ECG] [EKG] Anemia Basal cell carcinoma Cardiac pacemaker in situ Cataract Chest pain CHF (congestive heart failure) Dependence on continuous supplemental oxygen Dyspnea Pain of left great toe Family History (Updated 02/08/23 @ 20:14 by Talita Estes RN) Mother Family history of hypertension Basal cell adenoma Brother Family history of hypertension Other Family history of cancer Social History (Updated 02/08/23 @ 20:16 by Talita Estes RN) Smoking Status: Former smoker alcohol intake: never current occupational status: retired Travel in the last 8 weeks: None adopted: No caregiver/support person: Yes (aman louis/grandson) Review of Systems Review of Systems Review of systems:: pertinent systems reviewed and negative unless documented below Constitutional Constitutional: Reports system reviewed and no additional complaints, except as documented and Reports frequent falls Eyes Eyes: Reports system reviewed and no additional complaints, except as documented ENT Ears, Nose, Mouth, and Throat: Reports system reviewed and no additional complaints, except as documented and Denies vertigo *Cardiovascular Cardiovascular: Reports system reviewed and no additional complaints, except as documented, Denies chest pain, Denies dyspnea and Reports syncope *Respiratory Respiratory: Reports system reviewed and no additional complaints, except as documented and Denies dyspnea *Gastrointestinal Gastrointestinal: Reports system reviewed and no additional complaints, except as documented *Genitourinary Genitourinary: Reports system reviewed and no additional complaints, except as documented *Musculoskeletal Musculoskeletal: Reports system reviewed and no additional complaints, except as documented Integumentary/Breasts Skin/Breast: Reports system reviewed and no additional complaints, except as documented *Neurologic Neurologic: Reports system reviewed and no additional complaints, except as documented, Reports frequent falls, Reports syncope and Denies vertigo Psychiatric Psychiatric: Reports system reviewed and no additional complaints, except as documented Endocrine Endocrine: Reports system reviewed and no additional complaints, except as documented Hematologic/Lymphatic Hematologic/Lymphatic: Reports system reviewed and no additional complaints, except as documented Allergic/Immunologic Allergic/Immunologic: Reports system reviewed and no additional comp
--- NOTE | 2023-02-10 14:27 | PC.NURSE ---
PT left AMA at 1330. Pt was educated prior to leaving. Pt has prior MD appointments made with director hematology this she stated. Pt was educated to keep appointment and to followup with a pcp. Pt stated she needed to leave because her son had to go to work and she wouldn't have a ride later. MD made aware.
--- NOTE | 2023-02-10 17:12 | EXP.DC.SUM ---
General Admission date:: 02/08/23 Discharge date: 02/10/23 HPI HPI HPI: 82 year old female presented to the ED today after falling twice today. PMHX of recent PPM placement, CHF, blood thinner use, HLD, HTN, COPD, and Anemia. The patient states she fell twice while standing up. She was recently started on torsemide and metolazone. Pt c/o hitting head during fall. ED work consisted of CT of head spine, basic blood work, cardiac work up and orthostatic blood pressures. Her head and spine CT was unremarkable for trauma or hemorrhage. Blood work revealed leukocytosis, anemia, hypokalemia, LAURA, and negative troponins. Her EKG demonstrates atrial pacemaker w/ tachycardia. She is orthostatic positive with BP dropping to 67/33 when changing positions from sitting to standing. She was given potassium replacement therapy and the ED physician spoke with the hospitalist team regrading admission. She was admitted to the medical floor. Denies any pain and appears to be in no acute distress. Will have cardiology consult placed, monitor BMP, and be in fall precautions. Hospital Course Hospital Course Hospital Course: She was admitted for syncopal event. Blood pressure improved after fluid resuscitation. Kidney function improved with fluid resuscitation. Cardiology was consulted, problems addressed as follows: 1. The patient presented to the emergency department after having a syncopal episode and falling twice. The patient states that she was recently started on metolazone and torsemide and just has been feeling a little weak since that time. The patient was orthostatic with her blood pressure dropping to 67/33 when going from sitting to standing and she was severely dehydrated with an LAURA and hypokalemia. All of the patient's diuretics have been held and her blood pressure has now improved and is stable. Creatinine improved to 1.3 on day of discharge. Potassium was replaced and normal at 3.6 on day of discharge. Continue to hold diuretics. Unfortunately, patient left before being seen by primary team as she stated she could not stay to wait to be examined. Plan was to discharge however she could not wait until team could see her. Resume home regimens except for diuretics. Plan for close follow-up with cardiology. Adjustment to further medications per outpatient team. Exam Data for Last 24 hours Vital signs and Labs for Last 24 Hours: Temp Pulse Resp BP Pulse Ox O2 Del Method O2 Flow Rate 97.6 F 70 18 134/61 97 Nasal Cannula 3 02/10/23 11:48 02/10/23 12:00 02/10/23 11:48 02/10/23 11:48 02/10/23 11:48 02/10/23 13:00 02/10/23 13:00 FiO2 32 02/09/23 18:57 Laboratory Results - last 24 hr 02/09/23 18:07: Sodium 134 L, Potassium 3.6 D, Chloride 88 L, Carbon Dioxide 45 H*, Anion Gap 4.6 L, BUN 25 H, Creatinine 1.40 H, Estimated Creat Clear 51, Estimated GFR 36 L, Est GFR ( Amer) 44 L, Glucose 148 H D, Calcium 8.2 L 02/10/23 05:42: Sodium 137, Potassium 3.6, Chloride 91 L, Carbon Dioxide 48 H*, Anion Gap 9.6, BUN 20 H, Creatinine 1.30 H, Estimated Creat Clear 57, Estimated GFR 39 L, Est GFR ( Amer) 48 L, Glucose 100 D, Calcium 8.3 L I & O for Last 24 hours: Intake & Output 02/07/23 02/08/23 02/09/23 02/10/23 23:59 23:59 23:59 23:59 Intake Total 850 / 1241 2976 / 2976 360 / 360 Output Total 900 / 900 1000 / 1000 Balance 850 / 1241 2076 / 2076 -640 / -640 Weight 96.615 kg 99.972 kg 104.825 kg Microbiology Reports for the Last 24 Hours: Microbiology 02/08/23 07:52 Urine,Clean Catch Urine Culture - Preliminary NO GROWTH AFTER 24 HOURS Constitutional Comments: Patient left before able to examine. Results Data Completed and Pending Labs on day of discharge: Labs from last 24 hours 02/10/23 02/09/23 05:42 18:07 Sodium 137 134 L Potassium 3.6 3.6 D Chloride 91 L 88 L Carbon Dioxide 48 H* 45 H* Anion Gap 9.6 4.6 L BUN 20 H 25 H Crea
== END 2023-02-10 13:30 | disposition left against medical advice (07) ==
LOC: ER 18:33 → 2ND 18:39
PROVIDERS: Nurse Practitioner Critical Care Medicine; Admitting Provider Internal Medicine; Emergency Provider Emergency Medicine; Visit Provider Internal Medicine
DX: R55 Syncope and collapse (principal); E87.6 Hypokalemia; N17.9 Acute kidney failure, unspecified; J44.9 Chronic obstructive pulmonary disease, unspecified; E78.5 Hyperlipidemia, unspecified; I13.0 Hypertensive heart and chronic kidney disease with heart failure and stage 1 through stage 4 chronic kidney disease, or unspecified chronic kidney disease; D64.9 Anemia, unspecified; I95.1 Orthostatic hypotension; N18.9 Chronic kidney disease, unspecified; E86.0 Dehydration; E86.1 Hypovolemia; R35.89 Other polyuria; E87.3 Alkalosis; J96.11 Chronic respiratory failure with hypoxia; Z99.81 Dependence on supplemental oxygen; E66.9 Obesity, unspecified; I48.91 Unspecified atrial fibrillation; I50.22 Chronic systolic (congestive) heart failure; Z95.0 Presence of cardiac pacemaker; E78.2 Mixed hyperlipidemia; Z79.899 Other long term (current) drug therapy; Z79.02 Long term (current) use of antithrombotics/antiplatelets
CPT/HCPCS: G0378; 36415; 70450; 71045; 72125; 80048; 80053; 81001; 82962; 83735; 84484; 85025; 87086; 93005; 94640; 94760; 99285

== ENCOUNTER → 2023-02-17 09:03 | Outpatient (CLI) | payer MEDICARE, SELFPAY ==
--- NOTE | 2023-02-17 09:07 | XR_ITS ---
FINAL REPORT CLINICAL HISTORY: sob COMPARISON: 02/08/2023 FINDINGS: 2 views of the chest were obtained . The heart is enlarged. Patient is status post median sternotomy. A left subclavian pacemaker is in place. The mediastinum is within normal limits. Small right pleural effusion and persistent bilateral opacities are unchanged. There is no pneumothorax. Osseous structures are unremarkable. IMPRESSION: Stable, small right pleural effusion and bilateral opacities. Reviewed, Interpreted and Dictated by Cody Peoples III, MD Transcribed by Sara Arndt Authenticated and [facility]
[2023-02-17 10:48] LABS: Iron 51 ug/dL (37-170)
[2023-02-17 10:58] LABS: Total Iron Binding Capacity 303 ug/dL (265-497)
--- NOTE | 2023-02-17 11:00 | XR_ITS ---
FINAL REPORT CLINICAL HISTORY: Left foot pain fungus infected toenail looking to see if it has gone to bone COMPARISON: None FINDINGS: LEFT FOOT: Three views of the left foot were obtained. There is no acute fracture or dislocation. There is a small osteochondral lesion at the head of the first metatarsal. There is mild degenerative change. There is severe calcaneal spurs. No evidence of bony erosion. IMPRESSION: No acute bony abnormality. No evidence of bony erosion. Reviewed, Interpreted and Dictated by Cody Peoples III, MD Transcribed by Anya Kenny Authenticated and [facility]
[2023-02-17 14:09] LABS: Folate 8.77 ng/mL; Vitamin B12 > 1000 pg/mL (239-931)
== END ==
PROVIDERS: PCP Internal Medicine; Visit Provider Nurse Practitioner
DX: R06.00 Dyspnea, unspecified; R07.9 Chest pain, unspecified; D64.9 Anemia, unspecified; I50.9 Heart failure, unspecified; R94.31 Abnormal electrocardiogram [ECG] [EKG]; Z95.0 Presence of cardiac pacemaker; Z99.81 Dependence on supplemental oxygen; M79.672 Pain in left foot; B95.7 Other staphylococcus as the cause of diseases classified elsewhere
CPT/HCPCS: 36415; 71046; 73630; 82607; 82746; 83540; 83550; 87070; 87077; 87102; 87186; 87205; 87206; 87220

== ENCOUNTER → 2023-03-11 11:04 | Outpatient (CLI) | payer MEDICARE, SELFPAY ==
--- NOTE | 2023-03-11 11:05 | NM_ITS ---
APPROVED REPORT Exam: Nuclear Stress Test Indication: chest pain..soa..syncope..palpitations..fatigue..high BP..high cholerterol..family hx Patient Location: Outpatient Stress Tech: Sultana Aaron [place] Tech:Tata Garcia, ARRT RT(R)(N) Ht: 5 ft 7 in Wt: 215 lbs Bra Size: 38dd HR: 79 bpm BP: 147/63 mmHg BSA: 2.09 m2 Rhythm: NSR TID: 1.09 BMI: 33.6 History: chest pain..soa..syncope..palpitations..fatigue..high BP..high cholerterol..family hx Procedure: Patient received 0.4 mg of intravenous Lexiscan, resting heart rate 79 bpm, resting blood pressure 147/63 mmHg, with Lexiscan maximum heart rate achieved was 128 bpm which is 85 % of the maximum predicted heart rate and blood pressure was 153/62 mmHg. With Lexiscan, patient denied any complaint of chest pain. The patient was not able to lay on her belly for prone images. Cardiac Stress and Resting SPECT Images: Cardiac Stress and Resting SPECT images were obtained using technetium 99m Myoview 32.6 mCi stress and 10.98 mCi at rest. The patient could not lie on her abdomen. Therefore, prone stress imaging could not be obtained. Raw images also demonstrate overlap between the diaphragm and the inferior cardiac border. This may affect the diagnostic interpretation of the study findings. Resting and stress imaging in supine position demonstrate a medium sized, mild, fixed, tapered perfusion defect in the basal to mid inferior LV wall. This finding, along with normal inferior LV wall motion, is suggestive of diaphragmatic attenuation. Gated imaging demonstrates normal global and regional LV systolic function. LVEF is calculated at 52%. Conclusion: The patient could not lie on her abdomen. Therefore, prone stress imaging could not be obtained. Raw images also demonstrate overlap between the diaphragm and the inferior cardiac border. This may affect the diagnostic interpretation of the study findings. Resting and stress imaging in supine position demonstrate a medium sized, mild, fixed, tapered perfusion defect in the basal to mid inferior LV wall. This finding, along with normal inferior LV wall motion, is suggestive of diaphragmatic attenuation. Therefore, no definite fixed or reversible perfusion defects are seen. Gated imaging demonstrates normal global and regional LV systolic function. LVEF is calculated at 52%. Electronically signed by : Lanette Jarquin, 03/12/2023 00:30:05
--- NOTE | 2023-03-11 14:06 | CA_ITS ---
APPROVED REPORT Exam: Pharmacologic Technologist: Sultana Walker Ht: 5 ft 8 in Wt: 214 lbs BSA: 2.10 m2 HR: 78 bpm BP: 147/63 mmHg Rhythm: NSR Indications: Shortness of Breath, Chest pain Medical History Medications: Aspirin,,,,, Ferrous sulfate,,,,, Vitamin E,,,,, Vitamin B12,,,,, Atorvastatin,,,,, Duoneb,,,,, Farxiga,,,,, SyMBICORT,,,,, BisOPROLOL,,,,, DOxycycline,,,,, Apixaban,,,,, Izetimibe,,,,, Stress Test Details Test: LEXISCAN HR Resting HR: 79 bpm Max Heart Rate (APMHR): 139 bpm Max HR Achieved: 128 bpm Target HR (85% APMHR): 118 bpm % of APMHR: 92 Recovery HR: 93 bpm BP Resting BP: 147.0/63.0 mmHg Max BP: 153.0/62.0 mmHg Recovery BP: 127.0/62.0 mmHg ECG Resting ECG: Normal sinus rhythm Arrhythmia: PACs, PVCs Clinical Exercise duration: 04:00 min Highest Stage Achieved: Stress ECG Conclusion Symptoms: Lightheaded Arrhythmias/Ectopy: PACs, PVCs ST-T Changes: No ST changes Conclusion: Unremarkable Lexiscan stress test. Myoview images are reported separately. Test Summary REST . . . . . . . Resting REST 01:44 . . 79 . 147/ 63 . . Stage 1 . . . . . . . Myoview Injected Stage 1 01:00 . . 109 . . . . Stage 2 . . . . . . . Nausea Stage 2 01:00 . . 109 . . . . Stage 3 01:00 . . 106 . . . . Stage 4 01:00 . . 102 . 144/ 63 . Stop exercise at 04:00 RECOVERY 01:00 . . 106 . . . . RECOVERY 02:00 . . 82 . 153/ 62 . . RECOVERY 03:00 . . 91 . 153/ 62 . . RECOVERY 04:00 . . 90 . 125/ 37 . . RECOVERY 05:00 . . 91 . 127/ 62 . . RECOVERY 06:00 . . 92 . 127/ 62 . . RECOVERY 06:32 . . 92 . 127/ 62 . . Electronically signed by : Lanette Jarquin, 03/12/2023 00:24:35
== END ==
LOC: RAD 11:05
PROVIDERS: PCP Emergency Medicine; Visit Provider Nurse Practitioner
DX: R06.00 Dyspnea, unspecified; R07.9 Chest pain, unspecified; R94.31 Abnormal electrocardiogram [ECG] [EKG]; I11.0 Hypertensive heart disease with heart failure; I50.22 Chronic systolic (congestive) heart failure; E78.5 Hyperlipidemia, unspecified; D64.9 Anemia, unspecified; E66.9 Obesity, unspecified; Z68.32 Body mass index [BMI] 32.0-32.9, adult; Z95.0 Presence of cardiac pacemaker; Z99.81 Dependence on supplemental oxygen
CPT/HCPCS: 78452; 93017; A9502; J2785

== ENCOUNTER 2023-05-29 01:39 | Observation (INO) | payer MEDICARE, SELFPAY ==
[2023-05-29 01:39] VITALS: BP 134/57; PULSE 58; RESP 20; TEMP 37.3; O2SAT 97; BMI 33.4
--- NOTE | 2023-05-29 01:50 | XR_ITS ---
PROCEDURE INFORMATION: Exam: XR Pelvis Exam date and time: 05/29/2023 1:56 AM Age: 83 years old Clinical indication: Patient HX: Denies injury, C/O right hip pain TECHNIQUE: Imaging protocol: Radiologic exam of the pelvis. Views: 1 or 2 view. Total images: 1 COMPARISON: No relevant prior studies available. FINDINGS: Bones/joints: Osteopenia. No acute fracture or joint dislocation. Symmetric mild degenerative changes both hips. No widening of the pubic symphysis or sacroiliac joints. Moderate degenerative changes lower lumbar spine. No concerning bone lesions. Soft tissues: Unremarkable soft tissues. Gastrointestinal tract: Nonobstructive bowel gas pattern. Vasculature: Numerous pelvic calcifications/phleboliths. IMPRESSION: 1. No acute osseous abnormality. 2. Chronic findings.
--- NOTE | 2023-05-29 01:50 | XR_ITS ---
PROCEDURE INFORMATION: Exam: XR Right Femur Exam date and time: 05/29/2023 1:58 AM Age: 83 years old Clinical indication: Patient HX: Denies injury, C/O right hip pain; Additional info: Right leg pain TECHNIQUE: Imaging protocol: Radiologic exam of the right femur. Views: 2 views. Total images: 4 COMPARISON: CR XR PELVIS 1-2V 05/29/2023 1:56 AM FINDINGS: Bones/joints: Osteopenia. No acute fracture or joint dislocation. Enthesophytes greater trochanter. Mild degenerative change right hip. Mild tricompartment degenerative arthritis right knee. Patellar enthesophytes. No suprapatellar joint effusion. No concerning bone lesions. Soft tissues: Surgical clips right groin and medial to the right knee likely from prior vascular surgery. Vasculature: Atherosclerotic vascular calcifications. IMPRESSION: 1. No acute osseous abnormality. 2. Chronic findings.
--- NOTE | 2023-05-29 01:55 | HMH.EDGENADL ---
Discharge Plan Disposition Patient Disposition: Admitted Chief Complaint: Extremity Injury, Lower Prescriptions Prescriptions: No Action ferrous sulfate 325 mg (65 mg iron) tablet 325 mg PO DAILY vitamin E (dl, acetate) 180 mg (400 unit) capsule 180 mg PO DAILY calcium carb,glucon-vitamin D2 500 mg-5 mcg (200 unit) tablet 1 tab PO DAILY mecobalamin (vitamin B12) 5,000 mcg tablet,chewable 5,000 mcg PO DAILY Farxiga 5 mg tablet 5 mg PO DAILY Qty: 90 3RF metolazone 2.5 mg tablet 2.5 mg PO Q OTHER DAY Qty: 15 3RF torsemide 20 mg tablet 20 mg PO DAILY ezetimibe 10 mg tablet 10 mg PO DAILY atorvastatin 40 mg tablet 40 mg PO DAILY apixaban 5 mg tablet 5 mg PO BID aspirin [Aspirin Low-Strength] 81 mg Tablet,Delayed Release (Dr/Ec) 81 mg PO DAILY Clinical Impressions Clinical Impression: Acute hypokalemia, Hypomagnesemia Discharge ED Provider: Eduardo David General Adult HPI General Chief complaint: Extremity Injury, Lower Stated complaint: lower back pain Time Seen by Provider: 05/29/23 01:40 History of Present Illness HPI narrative: 83-year-old female, history of coronary artery disease status post distant CABG, paroxysmal A-fib with pacemaker in place, on apixaban, heart failure on torsemide and metolazone, presents with nausea and decreased p.o. intake x1 day, mild low back and right leg pain. She reports the pain in her right leg feels like it is in the bone. Reports no difficulty with ambulation. Reports no recent trauma. Reports the symptoms are very similar to when she was here a few months ago and was noted to be critically hypokalemic. She has had no recent changes in medication. She has not been sick recently. She denies any fevers chills. She denies any recent trauma. She denies lower extremity weakness or numbness, denies any urinary incontinence or retention, denies perineal numbness. Related Data Home Medications Medication Instructions Recorded Confirmed calcium carb,calcium gluconate 500 1 tab PO DAILY Supplement 01/27/23 03/19/23 mg-vit D2 5 mcg (200 unit) tablet ferrous sulfate 325 mg (65 mg 325 mg PO DAILY iron supplement 01/27/23 03/19/23 iron) tablet mecobalamin (vitamin B12) 5,000 5,000 mcg PO DAILY b12 supplement 01/27/23 03/19/23 mcg chewable tablet vitamin E (dl, acetate) 180 mg 180 mg PO DAILY supplement 01/27/23 03/19/23 (400 unit) capsule apixaban 5 mg tablet 5 mg PO BID Blood Thinner/atrial 02/08/23 03/19/23 fib atorvastatin 40 mg tablet 40 mg PO DAILY Cholesterol 02/08/23 03/19/23 ezetimibe 10 mg tablet 10 mg PO DAILY Cholesterol 02/08/23 03/19/23 torsemide 20 mg tablet 20 mg PO DAILY fluid/heart failure 02/08/23 03/19/23 aspirin 81 mg tablet,delayed 81 mg PO DAILY Heart Disease 02/09/23 03/19/23 release Previous Rx's Medication Instructions Recorded dapagliflozin propanediol 5 mg 5 mg PO DAILY Heart Failure #90 04/16/23 tablet (Farxiga) tabs metolazone 2.5 mg tablet 2.5 mg PO Q OTHER DAY #15 tabs 05/09/23 Allergies Allergy/AdvReac Type Severity Reaction Status Date / Time prednisone AdvReac Verified 04/16/23 13:21 [facility] Disclaimer: The information contained in this section may have been updated after the patient was seen, as this information can be updated by other users. Medical History Abnormal electrocardiogram [ECG] [EKG] Anemia Basal cell carcinoma Cardiac pacemaker in situ Cataract Chest pain CHF (congestive heart failure) Dependence on continuous supplemental oxygen Dyspnea Pain of left great toe Family History Mother Family history of hypertension Basal cell adenoma Brother Family history of hypertension Other Family history of cancer Social History Smoking Status: Never smoker alcohol in
[2023-05-29 01:57] LABS: Basophils % 0.5 % (0.1-2.0); Eosinophils # 0.1 K/mm3 (0.0-0.4); Eosinophils % 0.6 % (0.1-12.0); Hemoglobin 11.5 g/dL (12.2-16.2); Lymphocytes # 0.9 K/mm3 (0.7-4.5); Lymphocytes % 10.5 % (10-50); Mean Corpuscular HGB Conc 33.9 g/dL (31.8-35.4); Mean Corpuscular Hemoglobin 27.2 pg (27.0-31.2); Mean Corpuscular Volume 80.2 fl (81-99); Mean Platelet Volume 7.8 fl (7.4-10.4); Monocytes # 0.5 K/mm3 (0.1-1.0); Monocytes % 5.5 % (1.7-9.3); Neutrophils # 7.1 K/mm3 (1.8-7.8); Platelet Count 241 K/mm3 (142-424); Red Blood Count 4.23 M/mm3 (4.20-5.40); Red Cell Distribution Width 15.4 % (11.5-17.5); White Blood Count 8.6 K/mm3 (4.8-10.8)
[2023-05-29 02:06] LABS: Chloride 86 mmol/L (98-107); Sodium 134 mmol/L (136-145)
[2023-05-29 02:08] LABS: Blood Urea Nitrogen 16 mg/dl (7-17); Creatinine Clearance Estimated 53 mL/min (50-200); Estimated Glomerular Filt Rate 39 ml/min (>60); GFR (African American) 48 ML/MIN (>60)
[2023-05-29 02:09] LABS: Alanine Aminotransferase 14 U/L (12-78); Albumin Level 3.7 g/dl (3.5-5.0); Albumin/Globulin Ratio 1.1 (1.1-1.8); Alkaline Phosphatase 85 U/L (38-126); Aspartate Amino Transferase 25 U/L (14-36); Bilirubin,Total 0.7 mg/dl (0.2-1.3); Calcium 8.2 mg/dl (8.4-10.2); Globulin 3.5 g/dL (1.3-3.2); Glucose 124 mg/dl (74-100); Magnesium 1.4 mg/dl (1.6-2.3); Total Protein,Serum 7.2 g/dl (6.3-8.2)
[2023-05-29 02:16] LABS: Anion Gap 11.8 mEq/L (5-15); Carbon Dioxide 39 mmol/L (22.0-30.0); Potassium 2.8 mmoL/L (3.5-5.1)
--- NOTE | 2023-05-29 02:25 | ECG_ITS ---
APPROVED REPORT Exam: Resting ECG HR:67 bpm ECG Measurements Heart Rate 67 AXES DE 171 P 52 QRSd 110 QRS 41 QT 409 T 55 QTc 424 Conclusion SINUS RHYTHM NORMAL ECG INTERPRETATION BASED ON A DEFAULT AGE OF 40 YEARS UNCONFIRMED REPORT Electronically signed by : Ruben Johnson MD 05/29/2023 17:30:38
--- NOTE | 2023-05-29 02:31 | PC.NURSE ---
Admission notified for MIP admission to hospitalist room 205 for Hypokalemia
--- NOTE | 2023-05-29 02:43 | EXP.HP ---
History of Present Illness *Admission Date: 05/29/23 *Reason for visit:: right leg pain *History of present illness: This is a 83-year-old female PMHX of CAD s/p distant CABG, paroxysmal A-fib with pacemaker in place, on apixaban, heart failure on torsemide and metolazone, COPD on home Oxygen presented mild low back and right leg pain accompanied with nausea and decreased p.o. intake x1 day, She reported the pain in her right leg feels like it is in the bone. Reports no difficulty with ambulation. Reports no recent trauma. Reports the symptoms are very similar to when she was here a few months ago and was noted to be critically hypokalemic. She has had no recent changes in medication. Admitted for treatment and management [facility] Disclaimer: The information contained in this section may have been updated after the patient was seen, as this information can be updated by other users. Medical History Abnormal electrocardiogram [ECG] [EKG] Anemia Basal cell carcinoma Cardiac pacemaker in situ Cataract Chest pain CHF (congestive heart failure) Dependence on continuous supplemental oxygen Dyspnea Pain of left great toe Family History Mother Family history of hypertension Basal cell adenoma Brother Family history of hypertension Other Family history of cancer Social History (Updated 05/29/23 @ 03:20 by Jolanta Sigala RN) Smoking Status: Never smoker alcohol intake: never current occupational status: retired Travel in the last 8 weeks: None adopted: No caregiver/support person: Yes (aman louis/grandson) Meds Home Medications and Allergies Home Medications Medication Instructions Recorded Confirmed Type calcium carb,calcium gluconate 500 1 tab PO DAILY Supplement 01/27/23 05/29/23 History mg-vit D2 5 mcg (200 unit) tablet ferrous sulfate 325 mg (65 mg 325 mg PO DAILY iron supplement 01/27/23 05/29/23 History iron) tablet mecobalamin (vitamin B12) 5,000 5,000 mcg PO DAILY b12 supplement 01/27/23 05/29/23 History mcg chewable tablet vitamin E (dl, acetate) 180 mg 180 mg PO DAILY supplement 01/27/23 05/29/23 History (400 unit) capsule apixaban 5 mg tablet 5 mg PO BID Blood Thinner/atrial 02/08/23 05/29/23 History fib atorvastatin 40 mg tablet 40 mg PO DAILY Cholesterol 02/08/23 05/29/23 History ezetimibe 10 mg tablet 10 mg PO DAILY Cholesterol 02/08/23 05/29/23 History torsemide 20 mg tablet 20 mg PO DAILY fluid/heart failure 02/08/23 05/29/23 History aspirin 81 mg tablet,delayed 81 mg PO DAILY Heart Disease 02/09/23 05/29/23 History release dapagliflozin propanediol 5 mg 5 mg PO DAILY Heart Failure #90 04/16/23 05/29/23 Rx tablet (Farxiga) tabs magnesium oxide 400 mg (241.3 mg 400 mg PO DAILY 30 days #30 tabs 05/29/23 Rx magnesium) tablet spironolactone 25 mg tablet 25 mg PO DAILY 30 days #30 tabs 05/29/23 Rx New Prescriptions to Start Prescriptions: Peña Weaver spironolactone Peña Amato Allergies Allergy/AdvReac Type Severity Reaction Status Date / Time prednisone AdvReac Verified 04/16/23 13:21 Exam Data for Last 24 hours Vital signs and Labs for Last 24 Hours: Temp Pulse Resp BP Pulse Ox O2 Del Method O2 Flow Rate 99.2 F 58 L 20 134/57 L 97 Nasal Cannula 4 05/29/23 01:39 05/29/23 01:39 05/29/23 01:39 05/29/23 01:39 05/29/23 01:39 05/29/23 01:39 05/29/23 01:39 Laboratory Results - last 24 hr 05/29/23 01:46: WBC 8.6, RBC 4.23, Hgb 11.5 L, Hct 34.0 L, MCV 80.2 L, MCH 27.2, MCHC 33.9, RDW 15.4, Plt Count 241, MPV 7.8, Neut % (Auto) 83.0 H, Lymph % (Auto) 10.5, Banner % (Auto) 5.5, Eos % (Auto) 0.6, Baso % (Auto) 0.5, Neut # (Auto) 7.1, Lymph # (Auto) 0.9, [place]anner # (Auto) 0.5, Eos # (Auto) 0.1, Baso # (Auto) 0.0, Sodium 134 L, Potassium 2.8 L*, Chloride 86 L, Ca
[2023-05-29 02:52] VITALS: BP 136/68; PULSE 62; RESP 20; TEMP 37.2; O2SAT 97
--- NOTE | 2023-05-29 02:52 | PC.NURSE ---
Report called to Gail LUNA
--- NOTE | 2023-05-29 03:54 | PC.NURSE ---
pt arrived to the floor via stretcher @03:02
[2023-05-29 04:00] VITALS: BP 140/83; PULSE 60; PULSE 66; RESP 18; TEMP 36.9; O2SAT 94; BMI 30.4
--- NOTE | 2023-05-29 05:32 | PC.NURSE ---
Pt is alert and oriented x4, currently on 4L of O2 and sating at 94%. Pt has C/O of nausea and has received anti-nausea meds. Pt was admitted with hypokalemia and is on her 3rd run of potassium. Pt denies needs at this time.
[2023-05-29 06:06] LABS: Basophils % 0.4 % (0.1-2.0); Eosinophils % 0.3 % (0.1-12.0); Hematocrit 30.9 % (37.0-47.0); Hemoglobin 10.5 g/dL (12.2-16.2); Lymphocytes # 0.6 K/mm3 (0.7-4.5); Lymphocytes % 10.1 % (10-50); Mean Corpuscular Hemoglobin 27.5 pg (27.0-31.2); Mean Corpuscular Volume 80.9 fl (81-99); Mean Platelet Volume 7.5 fl (7.4-10.4); Monocytes # 0.3 K/mm3 (0.1-1.0); Monocytes % 5.6 % (1.7-9.3); Neutrophils % 83.7 % (37.0-80.0); Platelet Count 196 K/mm3 (142-424); Red Blood Count 3.82 M/mm3 (4.20-5.40); Red Cell Distribution Width 15.5 % (11.5-17.5)
[2023-05-29 06:16] LABS: Alanine Aminotransferase 41 U/L (12-78); Albumin Level 3.1 g/dl (3.5-5.0); Alkaline Phosphatase 153 U/L (38-126); Anion Gap 7.2 mEq/L (5-15); Aspartate Amino Transferase 149 U/L (14-36); Bilirubin,Total 1.1 mg/dl (0.2-1.3); Blood Urea Nitrogen 16 mg/dl (7-17); Calcium 7.6 mg/dl (8.4-10.2); Carbon Dioxide 38 mmol/L (22.0-30.0); Chloride 90 mmol/L (98-107); Creatinine Clearance Estimated 53 mL/min (50-200); Estimated Glomerular Filt Rate 43 ml/min (>60); GFR (African American) 52 ML/MIN (>60); Glucose 104 mg/dl (74-100); Magnesium 1.6 mg/dl (1.6-2.3); Potassium 4.2 mmoL/L (3.5-5.1); Sodium 131 mmol/L (136-145); Total Protein,Serum 6.1 g/dl (6.3-8.2)
[2023-05-29 07:26] VITALS: BP 154/63; PULSE 60; RESP 17; TEMP 36.7; O2SAT 100
--- NOTE | 2023-05-29 07:43 | HMH.PHAINT1 ---
Pharmacy Intervention Comments: MEDICATION RECONCILIATION COMPLETED ON PATIENT USING EXTERNAL FILL HISTORY FROM PHARMACY AND LIST FROM CARDIOLOGY. -SONIA TAY, JEREMYD
[2023-05-29 08:00] VITALS: PULSE 60
--- NOTE | 2023-05-29 09:42 | EXP.DC.SUM ---
General Admission date:: 05/29/23 Discharge date: 05/29/23 HPI HPI HPI: This is a 83-year-old female PMHX of CAD s/p distant CABG, paroxysmal A-fib with pacemaker in place, on apixaban, heart failure on torsemide and metolazone, COPD on home Oxygen presented mild low back and right leg pain accompanied with nausea and decreased p.o. intake x1 day, She reported the pain in her right leg feels like it is in the bone. Reports no difficulty with ambulation. Reports no recent trauma. Reports the symptoms are very similar to when she was here a few months ago and was noted to be critically hypokalemic. She has had no recent changes in medication. Admitted for treatment and management Hospital Course Hospital Course Hospital Course: 83-year-old female PMHX of CAD s/p distant CABG, paroxysmal A-fib with pacemaker in place, on apixaban, heart failure on torsemide and metolazone, presented mild low back and right leg pain accompanied with nausea and decreased p.o. intake x1 day, She reported the pain in her right leg feels like it is in the bone. Patient stated symptoms are similar to the last time she was diagnosed with hypokalemia. Initial ER evlation labs work confirmed low potassium. Radiology are negative for acute process or trauma. no fracture. Discussed with ER doctor. Due to severity of symptoms and the need to continuous IV electrolytes replacement and monitoring, desicion for admission was made. Electrolytes improved by morning. Stable for discharge home. Adjustments made to medications as follows. Problems addressed as follows: - right leg pain likely secondary to severe hypokalemia: -Hypomagnesemia Admitted for observation. Potassium and magnesium were supplemented. Repeat labs in the morning showed potassium of 4.2, up from 2.8. Magnesium 1.6, up from 1.4. Will initiate on oral magnesium supplement. Adjusted diuretics with continuation of torsemide. Discontinued metolazone. Switched back to spironolactone to help maintain normal potassium level. Patient on baseline oxygen. No longer having leg pain. No cramping. Stable for discharge home with medication adjustments. CKD: Kidney function at baseline. Creatinine 1.2. Recommend repeat labs in 1 week to monitor potassium, magnesium, creatinine. Continued home regimen for chronic conditions. No other changes to medications. Stable for discharge home with close follow-up with PCP. Exam Data for Last 24 hours Vital signs and Labs for Last 24 Hours: Temp Pulse Resp BP Pulse Ox O2 Del Method O2 Flow Rate 98.1 F 60 17 154/63 H 100 Nasal Cannula 2.5 05/29/23 07:26 05/29/23 07:26 05/29/23 07:26 05/29/23 07:26 05/29/23 07:26 05/29/23 09:00 05/29/23 09:00 Laboratory Results - last 24 hr 05/29/23 01:46: WBC 8.6, RBC 4.23, Hgb 11.5 L, Hct 34.0 L, MCV 80.2 L, MCH 27.2, MCHC 33.9, RDW 15.4, Plt Count 241, MPV 7.8, Neut % (Auto) 83.0 H, Lymph % (Auto) 10.5, [place] % (Auto) 5.5, Eos % (Auto) 0.6, Baso % (Auto) 0.5, Neut # (Auto) 7.1, Lymph # (Auto) 0.9, [place] # (Auto) 0.5, Eos # (Auto) 0.1, Baso # (Auto) 0.0, Sodium 134 L, Potassium 2.8 L*, Chloride 86 L, Carbon Dioxide 39 H, Anion Gap 11.8, BUN 16, Creatinine 1.30 H, Estimated Creat Clear 53, Estimated GFR 39 L, Est GFR ( Amer) 48 L, Glucose 124 H, Calcium 8.2 L, Magnesium 1.4 L, Total Bilirubin 0.7, AST 25, ALT 14, Alkaline Phosphatase 85, Total Protein 7.2, Albumin 3.7, Globulin 3.5 H, Albumin/Globulin Ratio 1.1 05/29/23 05:26: WBC 6.0 D, RBC 3.82 L, Hgb 10.5 L, Hct 30.9 L, MCV 80.9 L, MCH 27.5, MCHC 34.0, RDW 15.5, Plt Count 196, MPV 7.5, Neut % (Auto) 83.7 H, Lymph % (Auto) 10.1, [place] % (Auto) 5.6, Eos % (Auto) 0.3, Baso % (Auto) 0.4, Neut # (Auto) 5.0, Lymph # (Auto) 0.6 L, [place] # (Auto) 0.3, Eos # (Auto) 0.0, Baso # (Auto) 0.0, Sodium 131 L, Potassium 4.2 D, Chloride 90 L, Carbon Dioxide 38 H, Anion Gap 7.2, BUN 16, Creatinine 1.20 H, Estimated Creat Clear 53, Estimated GFR 43 L, Est GFR ( Amer
[2023-05-29 12:00] VITALS: PULSE 60
--- NOTE | 2023-05-30 15:02 | CARE MANAGER ---
Called and spoke with patient regarding recent discharge. Patient stated that she is doing well, was able to start new medication prescribed at discharge as well as discontinue the one stopped at discharge. She was aware of scheduled F/U appt with PCP. Patient had no concerns/complaints at time of call.
== END 2023-05-29 12:38 | disposition home or self-care (01) ==
LOC: ER 02:29 → 2ND 02:33
PROVIDERS: Nurse Practitioner Family; Admitting Provider Internal Medicine Adolescent Medicine; Emergency Provider Emergency Medicine; PCP Emergency Medicine; Visit Provider Internal Medicine Adolescent Medicine
DX: E87.6 Hypokalemia (principal); Z79.899 Other long term (current) drug therapy; M79.604 Pain in right leg; E83.42 Hypomagnesemia; N17.9 Acute kidney failure, unspecified; N18.9 Chronic kidney disease, unspecified; J44.9 Chronic obstructive pulmonary disease, unspecified; I48.0 Paroxysmal atrial fibrillation; E78.2 Mixed hyperlipidemia; I11.0 Hypertensive heart disease with heart failure; I50.22 Chronic systolic (congestive) heart failure; Z95.0 Presence of cardiac pacemaker; Z95.1 Presence of aortocoronary bypass graft; Z79.01 Long term (current) use of anticoagulants; Z99.81 Dependence on supplemental oxygen
CPT/HCPCS: 36415; 72170; 73552; 80053; 83735; 85025; 93005; 99291; G0378; J2405; J3475

== ENCOUNTER 2023-06-05 23:42 | Observation (INO) | payer MEDICARE, SELFPAY ==
[2023-06-05 23:42] VITALS: BP 124/55; PULSE 81; RESP 18; TEMP 37.6; O2SAT 95; BMI 31.0
--- NOTE | 2023-06-05 23:45 | XR_ITS ---
PROCEDURE INFORMATION: Exam: XR Chest Exam date and time: 06/05/2023 11:50 PM Age: 83 years old Clinical indication: Other: Weakness TECHNIQUE: Imaging protocol: Radiologic exam of the chest. Views: 1 view. COMPARISON: CR XR CHEST 2V 02/17/2023 9:09 AM FINDINGS: Tubes, catheters and devices: Stable 2 lead pacemaker. Lungs: Bibasilar subsegmental atelectasis. Underlying interstitial lung markings. Right upper lobar scarring and bronchiectasis. Pleural spaces: Small right pleural effusion. Heart/Mediastinum: Unremarkable. No cardiomegaly. Bones/joints: Unremarkable. IMPRESSION: Small right pleural effusion.
--- NOTE | 2023-06-05 23:47 | HMH.EDGENADL ---
Discharge Plan Disposition Patient Disposition: Admitted Prescriptions Prescriptions: No Action ferrous sulfate 325 mg (65 mg iron) tablet 325 mg PO DAILY vitamin E (dl, acetate) 180 mg (400 unit) capsule 180 mg PO DAILY calcium carb,glucon-vitamin D2 500 mg-5 mcg (200 unit) tablet 1 tab PO DAILY mecobalamin (vitamin B12) 5,000 mcg tablet,chewable 5,000 mcg PO DAILY Farxiga 5 mg tablet 5 mg PO DAILY Qty: 90 3RF torsemide 20 mg tablet 20 mg PO DAILY ezetimibe 10 mg tablet 10 mg PO DAILY atorvastatin 40 mg tablet 40 mg PO DAILY apixaban 5 mg tablet 5 mg PO BID aspirin 81 mg Tablet,Delayed Release (Dr/Ec) 81 mg PO DAILY magnesium oxide 400 mg (241.3 mg magnesium) Tablet 400 mg PO DAILY 30 Days Qty: 30 0RF spironolactone 25 mg tablet 25 mg PO DAILY 30 Days Qty: 30 0RF Referrals Follow up/Referrals: Provider,Referral, MD [Primary Care Provider] - See instructions Clinical Impressions Clinical Impression: Generalized weakness, Hyponatremia, Nausea Discharge ED Provider: Corina Mcdowell General Adult HPI General Chief complaint: Weakness Stated complaint: Weakness Time Seen by Provider: 06/05/23 23:45 History of Present Illness HPI narrative: This patient is an 83-year-old female with a history of COPD on 2 to 4 L nasal cannula at home at baseline, atrial fibrillation status post pacemaker placement on Eliquis, CAD status post CABG, CHF on torsemide and metolazone, hypertension, hyperlipidemia, and CKD presenting to the emergency department for evaluation with concern for generalized weakness. She notes that she has been feeling progressively worse over the past 3 days, and today became so weak that she could not stand. EMS notes that upon attempt to stand this evening, she had to be lowered to the ground by family. She notes that she feels lethargic and generally weak overall, but she denies any fevers, chills, chest pain, shortness of breath, cough, congestion, abdominal pain, vomiting, changes in bowel movements, dysuria, polyuria, rashes, or swelling. She does note that she has had some nausea. She notes that she is still been eating and drinking. On medical record review, she presented to the emergency department with concern for nausea and weakness on 05/29/2023 and was found to have LAURA on CKD, hypokalemia and hypomagnesemia. She was admitted to the hospital for electrolyte replacement. She notes compliance with her medications since discharge. Patient is brought in by EMS, who notes that she was too weak to stand on her own at home. They note that she was requiring 4 L nasal cannula in route for an oxygen saturation of 95%, but otherwise vitals were normal. Fingerstick was 170s per EMS. Related Data Home Medications Medication Instructions Recorded Confirmed calcium carb,calcium gluconate 500 1 tab PO DAILY Supplement 01/27/23 05/29/23 mg-vit D2 5 mcg (200 unit) tablet ferrous sulfate 325 mg (65 mg 325 mg PO DAILY iron supplement 01/27/23 05/29/23 iron) tablet mecobalamin (vitamin B12) 5,000 5,000 mcg PO DAILY b12 supplement 01/27/23 05/29/23 mcg chewable tablet vitamin E (dl, acetate) 180 mg 180 mg PO DAILY supplement 01/27/23 05/29/23 (400 unit) capsule apixaban 5 mg tablet 5 mg PO BID Blood Thinner/atrial 02/08/23 05/29/23 fib atorvastatin 40 mg tablet 40 mg PO DAILY Cholesterol 02/08/23 05/29/23 ezetimibe 10 mg tablet 10 mg PO DAILY Cholesterol 02/08/23 05/29/23 torsemide 20 mg tablet 20 mg PO DAILY fluid/heart failure 02/08/23 05/29/23 aspirin 81 mg tablet,delayed 81 mg PO DAILY Heart Disease 02/09/23 05/29/23 release Previous Rx's Medication Instructions Recorded dapagliflozin propanediol 5 mg 5 mg PO DAILY Heart Failure #90 04/16/23 tablet (Farxiga) tabs magnesium oxide 400 mg (241.3 mg 400 mg PO DAILY 30 days #30 tabs 05/29/23 magnesium) tablet spironolactone 25 mg tablet 25 mg PO DAILY 30 days #30
--- NOTE | 2023-06-05 23:56 | ECG_ITS ---
APPROVED REPORT Exam: Resting ECG HR:73 bpm ECG Measurements Heart Rate 73 AXES TX 167 P 37 QRSd 106 QRS 22 QT 397 T 30 QTc 423 Conclusion SINUS RHYTHM Isolated Q in III - previously noted ABNORMAL ECG UNCONFIRMED REPORT Electronically signed by : Ruben Johnson MD 06/06/2023 16:09:18
[2023-06-05 23:57] LABS: VBG Base Excess 8.9 mmol/L (-2.4-2.3); VBG HCO3 32.1 mmol/L (23-30); VBG Oxygen Saturation 95.4 % (50-70); VBG PO2 73.1 mmol/L (28-40); VBG Total CO2 33.4 mmol/L (23-27)
[2023-06-05 23:57] LABS: Coronavirus 19, PCR Not Detected (NotDetected); Influenza A, PCR Not Detected (NotDetected); Influenza B, PCR Not Detected (NotDetected)
[2023-06-06] VITALS (16 sets, daily range): BP systolic 117–154; BP diastolic 45–96; PULSE 60–77; RESP 16–24; TEMP 36.6–37.9; O2SAT 3–100; BMI 29.7
[2023-06-06 00:03] LABS: Basophils % 0.3 % (0.1-2.0); Eosinophils # 0.1 K/mm3 (0.0-0.4); Hematocrit 33.4 % (37.0-47.0); Hemoglobin 11.6 g/dL (12.2-16.2); Lymphocytes # 1.1 K/mm3 (0.7-4.5); Lymphocytes % 8.9 % (10-50); Mean Corpuscular HGB Conc 34.7 g/dL (31.8-35.4); Mean Corpuscular Volume 77.9 fl (81-99); Mean Platelet Volume 8.1 fl (7.4-10.4); Monocytes # 0.5 K/mm3 (0.1-1.0); Neutrophils # 10.5 K/mm3 (1.8-7.8); Neutrophils % 85.8 % (37.0-80.0); Platelet Count 235 K/mm3 (142-424); Red Blood Count 4.29 M/mm3 (4.20-5.40); Red Cell Distribution Width 15.6 % (11.5-17.5); White Blood Count 12.2 K/mm3 (4.8-10.8)
[2023-06-06 00:05] LABS: Chloride 86 mmol/L (98-107); Potassium 3.5 mmoL/L (3.5-5.1); Sodium 128 mmol/L (136-145)
[2023-06-06 00:06] LABS: MANUAL DIFFERENTIAL MANUAL DIFFERENTIAL (MANUAL DIFF)
[2023-06-06 00:07] LABS: Alanine Aminotransferase 32 U/L (12-78); Aspartate Amino Transferase 39 U/L (14-36); Blood Urea Nitrogen 21 mg/dl (7-17); Creatinine Clearance Estimated 46 mL/min (50-200); Estimated Glomerular Filt Rate 36 ml/min (>60); GFR (African American) 44 ML/MIN (>60)
[2023-06-06 00:08] LABS: Albumin/Globulin Ratio 1.2 (1.1-1.8); Alkaline Phosphatase 109 U/L (38-126); Anion Gap 8.5 mEq/L (5-15); Calcium 8.4 mg/dl (8.4-10.2); Carbon Dioxide 37 mmol/L (22.0-30.0); Globulin 3.3 g/dL (1.3-3.2); Glucose 170 mg/dl (74-100); Magnesium 1.7 mg/dl (1.6-2.3); Phosphorous 2.8 mg/dl (2.5-4.5); Total Protein,Serum 7.3 g/dl (6.3-8.2)
[2023-06-06 00:14] LABS: INR 1.13 (0.9-1.1); Prothrombin Time 12.1 seconds (10.1-12.5)
[2023-06-06 00:16] LABS: Lymphocytes % 13 % (10-50); Monocytes % 3 % (2-9); Neutrophils % 84 % (42-76); Platelet Estimate Normal; Stomatocytes 1+; Total Cells Counted 100
[2023-06-06 00:18] LABS: NT Pro Brain Natriuretic Pep. 1330 pg/mL (0-450)
[2023-06-06 00:25] LABS: T4 (Thyroxine) 13.3 ug/dl (5.53-11.0)
[2023-06-06 00:30] LABS: Troponin I 0.01 ng/ml (0.00-0.034)
[2023-06-06 00:39] LABS: Thyroid Stimulating Hormone 1.37 uIU/mL (0.465-4.68)
[2023-06-06 00:41] LABS: Microscopic, Urine URINE MICROSCOPIC (MICROSCOPIC)
[2023-06-06 00:51] LABS: Appearance,Urine CLOUDY (Clear); Blood, Urine TRACE-I (Negative); Color,Urine YELLOW (Yellow); Glucose,Urine (UA) 3+ (Negative); Ketones,Urine Negative (Negative); Leukocyte Esterase,Urine TRACE (Negative); Nitrate,Urine Negative (Negative); PH,Urine 6.5 (5.0-8.5); Protein,Urine TRACE (Negative)
[2023-06-06 00:54] LABS: Bilirubin,Urine Negative (Negative)
[2023-06-06 01:20] LABS: Bacteria,Urine 2+ /lpf; RBC,Urine Occasional #/hpf (0-3); WBC,Urine Occasional #/hpf (0-3)
--- NOTE | 2023-06-06 02:06 | PC.NURSE ---
Attempted to sit patient on side of bed, patient has difficulty raising on own, patient does not feel she would be able to stand at this time. Notified provider.
--- NOTE | 2023-06-06 02:08 | PC.NURSE ---
Notified House Karen of patient decision to admit for generalized weakness, requested bed assignment.
--- NOTE | 2023-06-06 02:10 | PC.NURSE ---
Observation admission to 211 with dx of generalized weakness to service of the hospitalist.
--- NOTE | 2023-06-06 02:17 | EXP.HP ---
History of Present Illness *Admission Date: 06/06/23 *Reason for visit:: weakness *History of present illness: 83 year old female presented to the ED for c/o weakness. She was recently admitted to this hospital for electrolyte abnormalities. PMHx of CKD, CHF, htn, a fib and copd. Her ED workup reveals hyponatremia of 128, creatinine of 1.40, BNP of 1330, leukocytes of 12.2, chest xray reveals right pleural effusion without infection. The ED physician gave 1 L of LR and attempted to discharge pt. ED reports pt is not able to sit on side of bed and lives alone. ED physician consulted the hospitalist team for further medical management. I admitted pt to the medical surgical floor. I have placed a PT evaluation for the morning. Will consider social work consult for possible placement if pt is unable to ambulate and return home. [facility] Disclaimer: The information contained in this section may have been updated after the patient was seen, as this information can be updated by other users. Medical History (Updated 06/06/23 @ 03:12 by Eugenia Gerardo RN) Abnormal electrocardiogram [ECG] [EKG] Anemia Basal cell carcinoma Cardiac pacemaker in situ Cataract Chest pain CHF (congestive heart failure) Dependence on continuous supplemental oxygen Dyspnea Myocardial infarction Pain of left great toe Family History Mother Family history of hypertension Basal cell adenoma Brother Family history of hypertension Other Family history of cancer Social History (Updated 06/06/23 @ 03:13 by Eugenia Gerardo RN) Smoking Status: Never smoker alcohol intake: never current occupational status: retired Travel in the last 8 weeks: None adopted: No caregiver/support person: Yes (aman louis/grandson) household members: family and other housing: house lives independently: No (lives with grandson and his ) Review of Systems Review of Systems Review of systems:: pertinent systems reviewed and negative unless documented below Meds Home Medications and Allergies Home Medications Medication Instructions Recorded Confirmed Type calcium carb,calcium gluconate 500 1 tab PO DAILY Supplement 01/27/23 06/06/23 History mg-vit D2 5 mcg (200 unit) tablet ferrous sulfate 325 mg (65 mg 325 mg PO DAILY iron supplement 01/27/23 06/06/23 History iron) tablet mecobalamin (vitamin B12) 5,000 5,000 mcg PO DAILY b12 supplement 01/27/23 06/06/23 History mcg chewable tablet vitamin E (dl, acetate) 180 mg 180 mg PO DAILY supplement 01/27/23 06/06/23 History (400 unit) capsule apixaban 5 mg tablet 5 mg PO BID Blood Thinner/atrial 02/08/23 06/06/23 History fib atorvastatin 40 mg tablet 40 mg PO DAILY Cholesterol 02/08/23 06/06/23 History ezetimibe 10 mg tablet 10 mg PO DAILY Cholesterol 02/08/23 06/06/23 History torsemide 20 mg tablet 20 mg PO DAILY fluid/heart failure 02/08/23 06/06/23 History aspirin 81 mg tablet,delayed 81 mg PO DAILY Heart Disease 02/09/23 06/06/23 History release dapagliflozin propanediol 5 mg 5 mg PO DAILY Heart Failure #90 04/16/23 06/06/23 Rx tablet (Farxiga) tabs magnesium oxide 400 mg (241.3 mg 400 mg PO DAILY 30 days #30 tabs 05/29/23 06/06/23 Rx magnesium) tablet bisoprolol fumarate 10 mg tablet 10 mg PO BID 06/06/23 06/06/23 History metolazone 2.5 mg tablet 2.5 mg PO Q48H 06/06/23 06/06/23 History New Prescriptions to Start Prescriptions: Allergies Allergy/AdvReac Type Severity Reaction Status Date / Time prednisone AdvReac Verified 06/06/23 02:50 Exam Data for Last 24 hours Vital signs and Labs for Last 24 Hours: Temp Pulse Resp BP Pulse Ox O2 Del Method O2 Flow Rate 99.6 F 60 20 129/48 L 97 Room Air 3 06/05/23 23:42 06/06/23 02:02 06/06/23 01:00 06/06/23 02:02 06/06/23 01:00 06/06/23 01:00 06/05/23 23:42 Laboratory Results - last 24 hr 06/05/23 23:45: WBC 12.2 H, RBC 4.29, Hgb 11.6 L, H
--- NOTE | 2023-06-06 02:45 | PC.NURSE ---
Nurse to nurse report to Manuela at this time.
--- NOTE | 2023-06-06 03:00 | PC.NURSE ---
pt to floor via stretcher at 02:48
[2023-06-06 03:12] LABS: Troponin I 0.02 ng/ml (0.00-0.034)
[2023-06-06 06:27] LABS: Basophils % 0.4 % (0.1-2.0); Eosinophils % 0.2 % (0.1-12.0); Hematocrit 29.9 % (37.0-47.0); Lymphocytes # 1.2 K/mm3 (0.7-4.5); Lymphocytes % 12.7 % (10-50); Mean Corpuscular HGB Conc 34.1 g/dL (31.8-35.4); Mean Corpuscular Hemoglobin 27.2 pg (27.0-31.2); Mean Corpuscular Volume 79.7 fl (81-99); Mean Platelet Volume 7.5 fl (7.4-10.4); Monocytes # 0.5 K/mm3 (0.1-1.0); Monocytes % 5.6 % (1.7-9.3); Neutrophils # 7.5 K/mm3 (1.8-7.8); Neutrophils % 81.2 % (37.0-80.0); Platelet Count 205 K/mm3 (142-424); Red Blood Count 3.75 M/mm3 (4.20-5.40); Red Cell Distribution Width 15.7 % (11.5-17.5); White Blood Count 9.2 K/mm3 (4.8-10.8)
[2023-06-06 06:33] LABS: Hemoglobin 10.2 g/dL (12.2-16.2)
[2023-06-06 06:48] LABS: Troponin I 0.01 ng/ml (0.00-0.034)
--- NOTE | 2023-06-06 08:14 | HMH.PHAINT1 ---
Pharmacy Intervention Comments: HOME MEDICATION LIST VERIFIED USING LIST FROM OUTPATIENT PHARMACY
--- NOTE | 2023-06-06 10:03 | SW/DCPLANNER ---
Addendum entered by [facility] 06/10/23 11:30: Per Prbahjot this patient has been approved SNF level of care. Pam mendiola/ Shawn Roy is fine with patient admitting today. I will update patient and MD: patient will discharge to [facility] level of care today. Addendum entered by [facility] 06/10/23 09:34: Pam mendiola/ Shawn Roy has requested updated information: updates have been faxed. Addendum entered by [facility] 06/09/23 12:37: Pam mendiola/ Shawn Roy stated that she is starting precert on this patient. I have updated patient and Franklyn mendiola/ [facility]. Addendum entered by [facility] 06/09/23 09:33: Vesta mendiola/ [facility] stated that she is unable to accept this patient. I updated patient of situation and she requested that information be faxed to [facility] and [facility]. Patient information has been faxed to both facilities:I will follow up once patient information is reviewed. Addendum entered by [facility] 06/09/23 07:50: Updated patient information has been faxed to V[facility] mendiola/ [facility]. Addendum entered by [facility] 06/06/23 15:31: Patient stated that she is now interested in placement after speaking w/ her daughter. Patient has requested that information be faxed to [facility]. I have faxed all patient information to [facility] and updated Addison mendiola/ [facility]. I have also updated patient's nurse Leigh Ann regarding situation. Patient does not feel safe to return home at this time. Addendum entered by [facility] 06/06/23 14:30: Due to patient paying county taxes to [facility] can not accept. Patient is agreeable for information to be faxed to [facility]. Patient information has been faxed and I will follow up w/ Sky once reviewed. Original Note: I spoke w/ this patient regarding plans once medically stable for discharge. PT/OT evaluated patient and recommended returning home and establishing w/ home health. Patient does not have a preference for home health and is okay w/ using [facility]. Patient information/order will be faxed to [facility] once medically stable for discharge. Patient stated that she may discharge home tomorrow pending no setbacks.
--- NOTE | 2023-06-06 10:34 | HMH.PTEV ---
Physical Therapy Evaluation Rehab PT IP Evaluation Start: 06/06/23 02:23 Freq: ONCE Status: Active Protocol: Document 06/06/23 10:21 CECEKENRICK (Rec: 06/06/23 10:34 CECEKENRICK [id number]) Subjective/History History History Patient is an 83 year old female admitted to [facility] secondary to generalized weakness. Patient reports that she was transferring off of the toilet with 2 people helping her, when her legs gave out resulting in a fall. Patient denies any injury or hitting her head. Patient lives at home with her grandson and his . Previously independent with ambulation requiring a RW. Patient caregivers perform all cleaning and cooking activities. Labs indicate significant electrolyte imbalance contributing to weakenss. Subjective Subjective I've just been feeling very weak. New diagnosis of cancer in past 12 No months? Rehab PT IP Eval Objective Appearance Patient Behavior Appropriate,Cooperative Patient Orientation Person,Place,Birthday Speech Pattern Clear,Appropriate Ambulation Patient Able to Ambulate Yes Ambulation Observation IP General Gait Pattern Observation Shuffling Step Ambulation Distance (feet) 8 Ambulation Assistive Device Rolling Walker Ambulation Ability Minimal x 2 (25% assist) Balance Ability to Arise Able, uses arms to help Sitting Balance Steady, safe Standing Balance Steady, wide stance Dynamic Sitting Balance Ability Normal Dynamic Standing Balance Ability Good Transfers Bed Transfer Ability Minimal x 1 (25% assist) Sit to Stand Bed Transfer Ability Minimal x 2 (25% assist) ROM All Extremities PT ROM Status WFL MMT LLE PT MMT ABN Abnormal MMT Grade 3+/5 RLE PT MMT ABN Abnormal MMT Grade 3+/5 Rehab PT IP prob,goals,plan Problems Date of Evaluation: 06/06/23 PT IP Problems Bed Mobility,Transfers,Gait, Balance,Self care,Safety Rehab Potential Rehab Potential Good Equipment Needs Assist
--- NOTE | 2023-06-06 11:13 | HMH.OTEV ---
OT Inpatient Evaluation Rehab OT IP Evaluation Start: 06/06/23 07:42 Freq: ONCE Status: Active Protocol: Document 06/06/23 11:04 WINDY (Rec: 06/06/23 11:12 [facility] [id number]) Rehab OT IP Assessment Subjective History Patient is an 83 year old female admitted to [facility] secondary to generalized weakness. Patient reports that she was transferring off of the toilet with 2 people helping her, when her legs gave out resulting in a fall. Patient denies any injury or hitting her head. Patient lives at home with her grandson and his . Previously independent with ambulation requiring a RW. Patient caregivers perform all cleaning and cooking activities. However, pt claims she is normally independent with ADLs such as dressing, bathing, and feeding. Labs indicate significant electrolyte imbalance contributing to weakenss. [ End ] Subjective I just feel shaky and weak. Objective Patient Orientation Person,Place,Birthday Right Upper Extremity Gross ROM WFL Left Upper Extremity Gross ROM WFL Bed Mobility bed mobility-scooting,bed mobility - supine/sit Assist Level Minimal x 1 (25% assist) Transfer Training Sit/Stand Transfer Assist Level Minimal x 2 (25% assist) Rehab OT IP prob,goals,plan Problems Date of Evaluation: 06/06/23 OT IP Problems Bed Mobility,Transfers,Balance ,Self care,Safety Rehab Potential Rehab Potential Good Equipment Needs Assistive Devices Rolling / Wheeled Walker Plan OT intervention Plan Bed Mobility,Transfers,Balance ,Self care,Safety,Therapeutic Exercise OT Plan Frequency BID Duration LOS Discharge Goals Bed Mobility Ability Standby Assistance Sit to Stand Chair Transfer Ability Minimal x 1 (25% assist) Chair Transfer Ability Minimal x 1 (25% assist) Chair Transfer Technique Sit to/from Ambulatory Chair Transfer Assistive Devices
--- NOTE | 2023-06-06 11:58 | PC.NURSE ---
courtesy tech note: patient rounded on. patient brought a drink per request. no further verbalized requests at this time. call light w/ in reach.
[2023-06-06 12:46] LABS: Anion Gap 8.2 mEq/L (5-15); Blood Urea Nitrogen 19 mg/dl (7-17); Calcium 7.9 mg/dl (8.4-10.2); Carbon Dioxide 37 mmol/L (22.0-30.0); Chloride 88 mmol/L (98-107); Creatinine Clearance Estimated 44 mL/min (50-200); Estimated Glomerular Filt Rate 36 ml/min (>60); GFR (African American) 44 ML/MIN (>60); Glucose 108 mg/dl (74-100); Potassium 3.2 mmoL/L (3.5-5.1); Sodium 130 mmol/L (136-145)
--- NOTE | 2023-06-06 15:29 | PC.NURSE ---
pt would like to go to a [facility] now for rehab. Bertha Franco aware and faxing info to [facility]. PT aware pt will be here all weekend.
--- NOTE | 2023-06-06 18:23 | PC.NURSE ---
A&OX4. PT HAS TOLERATED 3L NC WELL THROUGHOUT SHIFT. RESPIRATIONS REGULAR AND UNLABORED. LUNG SOUNDS CLEAR THROUGHOUT. NO COUGH NOTED. ACTIVE BOWEL SOUNDS HEARD IN ALL 4 QUADRANTS. SOFT AND NONTENDER ABDOMEN. NO BM THUS FAR. VOIDS WITH ASSISTX1 VIA BSC. CLEAR YELLOW URINE NOTED. UNSTEADY GAIT NOTED. 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 +2 PULSES NOTED THROUGHOUT. NO EDEMA NOTED. NO N/V/D REPORTED THUS FAR. NO PAIN REPORTED THUS FAR. BED IN LOWEST POSITION. CALL LIGHT WITHIN REACH. NO QUESTIONS OR CONCERNS VOICED. VSS. CURRENTLY WAITING FOR PRE AUTHORIZATION AT [facility] PER PT'S REQUEST.
--- NOTE | 2023-06-06 20:35 | PC.NURSE ---
pt c/o nausea post zofran administration - contacted hospitalist and new orders for phenagren IV administered - intervention was successful.
--- NOTE | 2023-06-07 03:00 | PC.NURSE ---
patient rang out with new onset right ear pain. Eugenia LUNA went to patient room where patient stated the following sx: right ear pain, right jaw pain. patient denies issues with teeth, arm pain, soa, chest pain. Notified Ronal Dejesus, Hospitalist of patient stating Feels like an ear ache , advised to give tylenol per MAR.
[2023-06-07 04:00] VITALS: BP 129/57; PULSE 79; RESP 16; TEMP 36.8; O2SAT 91; BMI 30.3
[2023-06-07 07:46] VITALS: BP 134/60; PULSE 61; RESP 16; TEMP 36.8; O2SAT 98
[2023-06-07 16:00] VITALS: BP 134/47; PULSE 68; RESP 18; TEMP 37.3; O2SAT 100
--- NOTE | 2023-06-07 16:09 | EXP.PN ---
Subjective *Date: 06/07/23 *Time: 16:09 Interval history: Patient was seen and evaluated at the bedside. denies chest pain, shortness of breath, nausea, vomiting, abdominal pain. Patient does not have any complaints at this time. feels better overall Exam Data for Last 24 hours Vital signs and Labs for Last 24 Hours: Temp Pulse Resp BP Pulse Ox O2 Del Method O2 Flow Rate 98.3 F 61 16 134/60 98 Nasal Cannula 2 06/07/23 07:46 06/07/23 07:46 06/07/23 07:46 06/07/23 07:46 06/07/23 07:46 06/07/23 13:00 06/07/23 13:00 I & O for Last 24 hours: Intake & Output 06/04/23 06/05/23 06/06/23 06/07/23 23:59 23:59 23:59 23:59 Intake Total 2009 235 / 235 Output Total 0 / 0 0 / 0 Balance 2009 235 / 235 Weight 92.533 kg 89.086 kg 90.9 kg Constitutional Constitutional: no acute distress *Routine HEENT Exam Head: Present normocephalic Eye: Present EOMI and PERRL ENT: Present mucous membranes moist *Routine Neck Exam Neck: Present supple; Absent lymphadenopathy *Routine Respiratory Exam Respiratory: Present CTA bilaterally *Routine Cardiovascular Exam Cardiovascular: Present RRR *Routine Abdominal Exam Abdominal: Present soft and normoactive bowel sounds; Absent tenderness *Routine Extremities Exam Extremities: Absent cyanosis, clubbing or edema *Routine Skin Exam Skin: Present warm; Absent rash *Routine Neurological Exam Neurological: Present alert and oriented X3 Assessment and Plan *Assessment and plan (1) Generalized weakness: Status: Acute Category: Medical Code(s): R53.1 - Weakness (2) Hyponatremia: Status: Acute Category: Medical Code(s): E87.1 - Hypo-osmolality and hyponatremia (3) Leukocytosis: Status: Acute Category: Medical Code(s): D72.829 - Elevated white blood cell count, unspecified (4) Acute kidney injury superimposed on chronic kidney disease: Status: Acute Category: Medical Code(s): N17.9 - Acute kidney failure, unspecified; N18.9 - Chronic kidney disease, unspecified (5) CHF (congestive heart failure): Status: Acute Qualifiers: Heart failure type: systolic Heart failure chronicity: chronic Qualified Code(s): I50.22 - Chronic systolic (congestive) heart failure Category: Medical Code(s): I50.9 - Heart failure, unspecified (6) HTN (hypertension): Status: Acute Qualifiers: Hypertension type: primary hypertension Qualified Code(s): I10 - Essential (primary) hypertension Category: Medical Code(s): I10 - Essential (primary) hypertension (7) HLD (hyperlipidemia): Status: Acute Qualifiers: Hyperlipidemia type: mixed hyperlipidemia Qualified Code(s): E78.2 - Mixed hyperlipidemia Category: Medical Code(s): E78.5 - Hyperlipidemia, unspecified (8) Atrial fibrillation: Status: Acute Qualifiers: Atrial fibrillation type: unspecified Qualified Code(s): I48.91 - Unspecified atrial fibrillation Category: Medical Code(s): I48.91 - Unspecified atrial fibrillation (9) COPD (chronic obstructive pulmonary disease): Status: Acute Qualifiers: COPD type: unspecified COPD Qualified Code(s): J44.9 - Chronic obstructive pulmonary disease, unspecified Category: Medical Code(s): J44.9 - Chronic obstructive pulmonary disease, unspecified (10) Obesity: Status: Acute Qualifiers: Obesity type: unspecified obesity type Obesity classification: unspecified obesity classification Serious obesity comorbidity presence: unspecified whether serious comorbidity present Qualified Code(s): E66.9 - Obesity, unspecified Category: Medical Code(s): E66.9 - Obesity, unspecified Plan Patient is a 50-year-old male patient is a 83-year-old female who presented to hospital with generalized weakness. Assessment Generalize
[2023-06-07 19:47] VITALS: BP 123/51; PULSE 62; RESP 16; TEMP 36.8; O2SAT 97
[2023-06-08 04:00] VITALS: BP 131/63; PULSE 68; RESP 16; TEMP 36.7; O2SAT 100; BMI 30.1
[2023-06-08 07:29] VITALS: BP 146/69; PULSE 70; RESP 16; TEMP 37.2; O2SAT 93
[2023-06-08 08:00] VITALS: O2SAT 95
--- NOTE | 2023-06-08 14:13 | EXP.PN ---
Subjective *Date: 06/08/23 *Time: 14:13 Interval history: Patient was seen and evaluated at the bedside. denies chest pain, shortness of breath, nausea, vomiting, abdominal pain. Patient does not have any complaints at this time. feels better overall Exam Data for Last 24 hours Vital signs and Labs for Last 24 Hours: Temp Pulse Resp BP Pulse Ox O2 Del Method O2 Flow Rate 98.9 F 70 16 146/69 H 95 Nasal Cannula 2 06/08/23 07:29 06/08/23 07:29 06/08/23 07:29 06/08/23 07:29 06/08/23 08:00 06/08/23 12:05 06/08/23 12:05 I & O for Last 24 hours: Intake & Output 06/05/23 06/06/23 06/07/23 06/08/23 23:59 23:59 23:59 23:59 Intake Total 2009 505 / 505 100 / 100 Output Total 0 / 0 0 / 0 Balance 2009 505 / 505 100 / 100 Weight 92.533 kg 89.086 kg 90.9 kg 90.22 kg Microbiology Reports for the Last 24 Hours: Microbiology 06/06/23 00:35 Urine,Catheterized Urine Culture - Final Constitutional Constitutional: no acute distress *Routine HEENT Exam Head: Present normocephalic Eye: Present EOMI and PERRL ENT: Present mucous membranes moist *Routine Neck Exam Neck: Present supple; Absent lymphadenopathy *Routine Respiratory Exam Respiratory: Present CTA bilaterally *Routine Cardiovascular Exam Cardiovascular: Present RRR *Routine Abdominal Exam Abdominal: Present soft and normoactive bowel sounds; Absent tenderness *Routine Extremities Exam Extremities: Absent cyanosis, clubbing or edema *Routine Skin Exam Skin: Present warm; Absent rash *Routine Neurological Exam Neurological: Present alert and oriented X3 Assessment and Plan *Assessment and plan (1) Generalized weakness: Status: Acute Category: Medical Code(s): R53.1 - Weakness (2) Hyponatremia: Status: Acute Category: Medical Code(s): E87.1 - Hypo-osmolality and hyponatremia (3) Leukocytosis: Status: Acute Category: Medical Code(s): D72.829 - Elevated white blood cell count, unspecified (4) Acute kidney injury superimposed on chronic kidney disease: Status: Acute Category: Medical Code(s): N17.9 - Acute kidney failure, unspecified; N18.9 - Chronic kidney disease, unspecified (5) CHF (congestive heart failure): Status: Acute Qualifiers: Heart failure type: systolic Heart failure chronicity: chronic Qualified Code(s): I50.22 - Chronic systolic (congestive) heart failure Category: Medical Code(s): I50.9 - Heart failure, unspecified (6) HTN (hypertension): Status: Acute Qualifiers: Hypertension type: primary hypertension Qualified Code(s): I10 - Essential (primary) hypertension Category: Medical Code(s): I10 - Essential (primary) hypertension (7) HLD (hyperlipidemia): Status: Acute Qualifiers: Hyperlipidemia type: mixed hyperlipidemia Qualified Code(s): E78.2 - Mixed hyperlipidemia Category: Medical Code(s): E78.5 - Hyperlipidemia, unspecified (8) Atrial fibrillation: Status: Acute Qualifiers: Atrial fibrillation type: unspecified Qualified Code(s): I48.91 - Unspecified atrial fibrillation Category: Medical Code(s): I48.91 - Unspecified atrial fibrillation (9) COPD (chronic obstructive pulmonary disease): Status: Acute Qualifiers: COPD type: unspecified COPD Qualified Code(s): J44.9 - Chronic obstructive pulmonary disease, unspecified Category: Medical Code(s): J44.9 - Chronic obstructive pulmonary disease, unspecified (10) Obesity: Status: Acute Qualifiers: Obesity type: unspecified obesity type Obesity classification: unspecified obesity classification Serious obesity comorbidity presence: unspecified whether serious comorbidity present Qualified Code(s): E66.9 - Obesity, unspecified Category: Medical Code(s): E66.9 - Obesity, uns
[2023-06-08 15:34] VITALS: BP 122/51; PULSE 72; RESP 18; TEMP 36.5; O2SAT 98
[2023-06-08 19:46] VITALS: BP 115/51; PULSE 67; RESP 17; TEMP 36.9; O2SAT 99
[2023-06-08 20:53] VITALS: BMI 30.1
[2023-06-09 04:00] VITALS: BP 128/58; PULSE 71; RESP 16; TEMP 37.2; O2SAT 98; BMI 31.0
--- NOTE | 2023-06-09 07:12 | EXP.DC.SUM ---
General Admission date:: 06/06/23 Discharge date: 06/10/23 HPI HPI HPI: 83 year old female presented to the ED for c/o weakness. She was recently admitted to this hospital for electrolyte abnormalities. PMHx of CKD, CHF, htn, a fib and copd. Her ED workup reveals hyponatremia of 128, creatinine of 1.40, BNP of 1330, leukocytes of 12.2, chest xray reveals right pleural effusion without infection. The ED physician gave 1 L of LR and attempted to discharge pt. ED reports pt is not able to sit on side of bed and lives alone. ED physician consulted the hospitalist team for further medical management. I admitted pt to the medical surgical floor. I have placed a PT evaluation for the morning. Will consider social work consult for possible placement if pt is unable to ambulate and return home. Hospital Course Hospital Course Hospital Course: patient is a 83-year-old female who presented to hospital with generalized weakness. Has done well during admission. Electrolytes replaced. Stable for discharge. PT and OT recommended placement for further rehab. Has been accepted by [facility]. Problems addressed during hospitalization as follows: Generalized weakness Recurrent falls -PT and OT evaluated, recommend placement. Awaiting insurance approval. Related to her electrolyte disturbances and progressive debility. Patient has been accepted by [facility] for rehab. Case management and social work assisting with care and placement. Stable at this time for discharge. CKD: Creatinine appears at baseline. Repeat CMP ordered for the morning Hypokalemia/hypomagnesemia: Replacing as needed. Potassium 3.4 and magnesium 1.9 this morning. Needs CMP and magnesium levels ordered in 1 week A-fib CHF Hyperlipidemia - Continue Eliquis 5 mg twice daily, aspirin 81 mg daily, Lipitor 40 mg daily, Jardiance 10 mg daily, resume torsemide every other day at discharge. Continue bisoprolol 5 mg once daily. 10 mg twice daily bisoprolol concerning for causing some of her weakness. Reevaluate heart rate over the next 1 to 2 weeks. May need further adjustment to her bisoprolol regimen. COPD: Continue home oxygen of 2 L, sats greater 90%. DuoNebs every 6 hours as needed Spent 30 minutes in discharge counseling, documentation, chart review, and direct care with patient. Exam Data for Last 24 hours Vital signs and Labs for Last 24 Hours: Temp Pulse Resp BP Pulse Ox O2 Del Method O2 Flow Rate 99.0 F 71 16 128/58 L 98 Nasal Cannula 2 06/09/23 04:00 06/09/23 04:00 06/09/23 04:00 06/09/23 04:00 06/09/23 04:00 06/09/23 07:00 06/09/23 07:00 I & O for Last 24 hours: Intake & Output 06/06/23 06/07/23 06/08/23 06/09/23 23:59 23:59 23:59 23:59 Intake Total 2009 505 / 505 490 / 490 Output Total 0 / 0 0 / 0 0 / 0 0 / 0 Balance 2009 505 / 505 490 / 490 0 / 0 Weight 89.086 kg 90.9 kg 90.22 kg 92.85 kg Microbiology Reports for the Last 24 Hours: Microbiology 06/06/23 00:35 Urine,Catheterized Urine Culture - Final Constitutional Constitutional: no acute distress, obese and chronically ill appearing *Routine HEENT Exam Head: Present normocephalic Eye: Present EOMI and PERRL ENT: Present mucous membranes moist *Routine Neck Exam Neck: Present supple; Absent lymphadenopathy *Routine Respiratory Exam Respiratory: Present CTA bilaterally; Absent rhonchi, wheezes or crackles *Routine Cardiovascular Exam Cardiovascular: Present RRR *Routine Abdominal Exam Abdominal: Present soft and normoactive bowel sounds; Absent tenderness *Routine Extremities Exam Extremities: Absent cyanosis, clubbing or edema *Routine Skin Exam Skin: Present warm; Absent rash *Routine Neurological Exam Neurological: Present alert, oriented X3 and moving all extremities; Absent altered mental status DS: Diagnosis Discharge Diagnosis (1) Generalized weakness: Status: Acute Code(s): R53.1 - Weakness (2) Hyponatre
[2023-06-09 07:33] LABS: Basophils % 0.6 % (0.1-2.0); Eosinophils # 0.2 K/mm3 (0.0-0.4); Eosinophils % 2.5 % (0.1-12.0); Hematocrit 30.3 % (37.0-47.0); Hemoglobin 10.1 g/dL (12.2-16.2); Lymphocytes # 0.9 K/mm3 (0.7-4.5); Lymphocytes % 15.3 % (10-50); Mean Corpuscular HGB Conc 33.3 g/dL (31.8-35.4); Mean Corpuscular Hemoglobin 26.5 pg (27.0-31.2); Mean Corpuscular Volume 79.7 fl (81-99); Mean Platelet Volume 8.3 fl (7.4-10.4); Monocytes # 0.5 K/mm3 (0.1-1.0); Monocytes % 7.7 % (1.7-9.3); Neutrophils # 4.3 K/mm3 (1.8-7.8); Neutrophils % 73.9 % (37.0-80.0); Platelet Count 195 K/mm3 (142-424); Red Cell Distribution Width 15.9 % (11.5-17.5); White Blood Count 5.8 K/mm3 (4.8-10.8)
[2023-06-09 08:00] VITALS: BP 133/61; PULSE 79; RESP 16; TEMP 37; O2SAT 97
[2023-06-09 08:03] LABS: Alanine Aminotransferase 34 U/L (12-78); Albumin Level 2.9 g/dl (3.5-5.0); Alkaline Phosphatase 89 U/L (38-126); Anion Gap 8.2 mEq/L (5-15); Aspartate Amino Transferase 48 U/L (14-36); Bilirubin,Total 0.5 mg/dl (0.2-1.3); Blood Urea Nitrogen 14 mg/dl (7-17); Carbon Dioxide 37 mmol/L (22.0-30.0); Chloride 90 mmol/L (98-107); Creatinine Clearance Estimated 50 mL/min (50-200); Estimated Glomerular Filt Rate 39 ml/min (>60); GFR (African American) 48 ML/MIN (>60); Glucose 98 mg/dl (74-100); Potassium 3.2 mmoL/L (3.5-5.1); Sodium 132 mmol/L (136-145); Total Protein,Serum 5.9 g/dl (6.3-8.2)
--- NOTE | 2023-06-09 14:23 | PC.NURSE ---
PT IS RESTING IN BED. ALERT AND ORIENTED X4. EATING AND DRINKING WELL. PT HAS BEEN ASSISTED TO THE BSC SEVERAL TIMES THIS SHIFT. LUNG SOUNDS DIMINISHED. ABDOMEN SOFT/NON TENDER WITH ACTIVE BOWEL SOUNDS. AWAITING PLACEMENT AT THIS TIME. WILL CONTINUE TO MONITOR.
[2023-06-09 15:11] VITALS: BP 127/58; PULSE 71; RESP 18; TEMP 36.9; O2SAT 97
--- NOTE | 2023-06-09 16:42 | EXP.ACUTE.PN ---
Subjective *Date: 06/09/23 *Time: 16:42 Interval history: Patient stable on 1 L of gin, tolerating p.o. intake. Still having some lower extremity weakness and cramping. Tolerating medications. No nausea, vomiting, chest pain, confusion. Medical Exam Vital signs and Labs for Last 24 Hours: Vital Signs Temp Pulse Resp BP Pulse Ox O2 Del Method O2 Flow Rate 06/09/23 15:11 98.5 F 71 18 127/58 L 97 Nasal Cannula 2 06/09/23 14:40 Nasal Cannula 2 06/09/23 13:00 Nasal Cannula 2 06/09/23 11:00 Nasal Cannula 2 06/09/23 08:42 Nasal Cannula 2 06/09/23 08:00 Nasal Cannula 2 06/09/23 08:00 98.6 F 79 16 133/61 97 Nasal Cannula 2 06/09/23 07:00 Nasal Cannula 2 06/09/23 05:00 Nasal Cannula 2 06/09/23 04:00 99.0 F 71 16 128/58 L 98 Nasal Cannula 2 06/09/23 03:00 Nasal Cannula 2 06/09/23 01:00 Nasal Cannula 2 06/08/23 23:00 Nasal Cannula 2 06/08/23 21:00 Nasal Cannula 2 06/08/23 20:00 Nasal Cannula 2 06/08/23 19:46 98.4 F 67 17 115/51 L 99 Nasal Cannula 2 06/08/23 18:28 Nasal Cannula 2 Intake and Output 06/09/23 06/09/23 06/09/23 07:59 15:59 23:59 Intake Total 810 / 810 Output Total 0 / 200 200 / 200 Balance 0 / 610 810 / 610 -200 / 610 Intake: Intake, Oral Amount 810 / 810 Output: Output, Urine Amount 0 / 200 200 / 200 Other: Number of Voids 1 Number of Unmeasured Voids 1 Number of Bowel Movements 1 Weight 92.85 kg Patient Weight 06/09/23 23:59 Weight 92.85 kg Laboratory Results - last 24 hr 06/09/23 07:04: WBC 5.8, RBC 3.80 L, Hgb 10.1 L, Hct 30.3 L, MCV 79.7 L, MCH 26.5 L, MCHC 33.3, RDW 15.9, Plt Count 195, MPV 8.3, Neut % (Auto) 73.9, Lymph % (Auto) 15.3, Frontier % (Auto) 7.7, Eos % (Auto) 2.5, Baso % (Auto) 0.6, Neut # (Auto) 4.3, Lymph # (Auto) 0.9, Frontier # (Auto) 0.5, Eos # (Auto) 0.2, Baso # (Auto) 0.0, Sodium 132 L, Potassium 3.2 L, Chloride 90 L, Carbon Dioxide 37 H, Anion Gap 8.2, BUN 14, Creatinine 1.30 H, Estimated Creat Clear 50, Estimated GFR 39 L, Est GFR ( Amer) 48 L, Glucose 98, Calcium 8.0 L, Total Bilirubin 0.5, AST 48 H, ALT 34, Alkaline Phosphatase 89, Total Protein 5.9 L, Albumin 2.9 L, Globulin 3.0, Albumin/Globulin Ratio 1.0 L I & O for Labs for Last 24 Hours: Intake & Output 06/06/23 06/07/23 06/08/23 06/09/23 23:59 23:59 23:59 23:59 Intake Total 2009 505 / 505 490 / 490 810 / 810 Output Total 0 / 0 0 / 0 0 / 0 200 / 200 Balance 2009 505 / 505 490 / 490 610 / 610 Weight 89.086 kg 90.9 kg 90.22 kg 92.85 kg Constitutional: Present no acute distress, obese and chronically ill appearing Head: Present atraumatic and normocephalic ENT: Present normal exam Respiratory: Present normal respiratory effort; Absent rhonchi, wheezes or crackles Cardiac: Present Reg Rate and Rhythm GI: Present soft and normal bowel sounds; Absent distention or tenderness Extremities: Present normal inspection and full ROM Skin: Present intact; Absent erythema Neuro: Present Grossly Intact, alert, awake, oriented x 3 and moves all extremities Assessment and Plan *Assessment and plan (1) Hypokalemia: Status: Acute Category: Medical Code(s): E87.6 - Hypokalemia (2) Generalized weakness: Status: Acute Category: Medical Code(s): R53.1 - Weakness (3) Hyponatremia: Status: Acute Category: Medical Code(s): E87.1 - Hypo-osmolality and hyponatremia (4) Leukocytosis: Status: Acute Category: Medical Code(s): D72.829 - Elevated white blood cell count, unspecified (5) Acute kidney injury superimposed on chronic kidney disease: Status: Acute Category: Medical Code(s): N17.9 - Acute kidney failure, unspecified; N18.9 - Chronic kidney disease, unspecified (6) CHF (congestive heart failure): Status: Acute Qualifiers: Heart failure type: systolic
[2023-06-09 20:00] VITALS: BP 129/58; PULSE 81; RESP 16; TEMP 36.7; O2SAT 97
[2023-06-09 20:56] VITALS: BP 131/55; PULSE 73; O2SAT 98
[2023-06-10 04:00] VITALS: BP 142/71; PULSE 72; RESP 17; TEMP 36.7; O2SAT 99; BMI 30.9
--- NOTE | 2023-06-10 06:35 | PC.NURSE ---
right arm iv site with brown thin drainage noted coming from puncture site. redness noted around site. iv d'cd and new iv re-sited. charge nurse made aware. pt reported episode of soa, lightheadedness and dizziness. pt turned up to 3l/nc. vss
[2023-06-10 07:09] LABS: Basophils % 0.4 % (0.1-2.0); Eosinophils # 0.2 K/mm3 (0.0-0.4); Eosinophils % 2.7 % (0.1-12.0); Hemoglobin 9.9 g/dL (12.2-16.2); Lymphocytes # 0.8 K/mm3 (0.7-4.5); Lymphocytes % 13.2 % (10-50); Mean Corpuscular HGB Conc 32.8 g/dL (31.8-35.4); Mean Corpuscular Hemoglobin 25.9 pg (27.0-31.2); Mean Corpuscular Volume 79.1 fl (81-99); Monocytes # 0.4 K/mm3 (0.1-1.0); Monocytes % 6.6 % (1.7-9.3); Neutrophils # 4.6 K/mm3 (1.8-7.8); Platelet Count 191 K/mm3 (142-424); Red Cell Distribution Width 15.9 % (11.5-17.5)
[2023-06-10 07:19] LABS: Anion Gap 6.4 mEq/L (5-15); Blood Urea Nitrogen 14 mg/dl (7-17); Calcium 8.2 mg/dl (8.4-10.2); Carbon Dioxide 37 mmol/L (22.0-30.0); Chloride 91 mmol/L (98-107); Creatinine Clearance Estimated 50 mL/min (50-200); Estimated Glomerular Filt Rate 39 ml/min (>60); GFR (African American) 48 ML/MIN (>60); Glucose 101 mg/dl (74-100); Magnesium 1.9 mg/dl (1.6-2.3); Potassium 3.4 mmoL/L (3.5-5.1); Sodium 131 mmol/L (136-145)
[2023-06-10 07:41] VITALS: BP 130/56; PULSE 75; RESP 17; TEMP 36.8; O2SAT 97
--- NOTE | 2023-06-10 12:27 | PC.NURSE ---
called report to marques at [facility]
== END 2023-06-10 13:10 ==
LOC: ER 06-06 02:07 → 2ND 06-06 02:28
PROVIDERS: Internal Medicine Adolescent Medicine; Nurse Practitioner Critical Care Medicine; Nurse Practitioner Family; Admitting Provider Internal Medicine; Emergency Provider Emergency Medicine; Visit Provider Internal Medicine
DX: R53.1 Weakness (principal); E87.1 Hypo-osmolality and hyponatremia; D72.829 Elevated white blood cell count, unspecified; N17.9 Acute kidney failure, unspecified; N18.9 Chronic kidney disease, unspecified; I50.22 Chronic systolic (congestive) heart failure; I13.0 Hypertensive heart and chronic kidney disease with heart failure and stage 1 through stage 4 chronic kidney disease, or unspecified chronic kidney disease; E78.2 Mixed hyperlipidemia; I48.91 Unspecified atrial fibrillation; J44.9 Chronic obstructive pulmonary disease, unspecified; E66.9 Obesity, unspecified; E87.6 Hypokalemia; Z95.0 Presence of cardiac pacemaker; Z99.81 Dependence on supplemental oxygen; Z79.899 Other long term (current) drug therapy; Z79.01 Long term (current) use of anticoagulants; R29.6 Repeated falls
CPT/HCPCS: 36415; 71045; 80048; 80053; 81001; 82803; 83735; 83880; 84100; 84436; 84443; 84484; 85007; 85025; 85610; 85730; 87086; 87636; 93005; 97110; 97116; 97163; 97166; 97530; 99285; G0378; J2405

== ENCOUNTER 2023-07-03 15:35 | Emergency (ER) | payer MEDICARE, SELFPAY ==
[2023-07-03] VITALS (9 sets, daily range): BP systolic 137–181; BP diastolic 51–91; PULSE 60–75; RESP 20–22; TEMP 36.7–36.8; O2SAT 95–100; BMI 30.4
--- NOTE | 2023-07-03 15:59 | XR_ITS ---
PROCEDURE INFORMATION: Exam: XR Chest Exam date and time: 07/03/2023 4:30 PM Age: 83 years old Clinical indication: Shortness of breath; Additional info: neida ARRINGTON TECHNIQUE: Imaging protocol: Radiologic exam of the chest. Views: 1 view. COMPARISON: CR XR CHEST PORTABLE 06/05/2023 11:50 PM FINDINGS: Tubes, catheters and devices: Cardiac pulse generator leads are unchanged in position. Lungs: Mild bibasilar atelectasis. Chronic parenchymal scarring at the right lung apex. No acute airspace process. Pleural spaces: Small right-sided pleural effusion. Heart/Mediastinum: Unremarkable. No cardiomegaly. Bones/joints: Median sternotomy. IMPRESSION: Mild bibasilar atelectasis and minor right-sided pleural fluid.
--- NOTE | 2023-07-03 16:00 | HMH.EDGENADL ---
Discharge Plan Disposition Patient Disposition: Home, Self-Care Prescriptions Prescriptions: No Action ferrous sulfate 325 mg (65 mg iron) tablet 325 mg PO DAILY vitamin E (dl, acetate) 180 mg (400 unit) capsule 180 mg PO DAILY calcium carb,glucon-vitamin D2 500 mg-5 mcg (200 unit) tablet 1 tab PO DAILY mecobalamin (vitamin B12) 5,000 mcg tablet,chewable 5,000 mcg PO DAILY Farxiga 5 mg tablet 5 mg PO DAILY Qty: 90 3RF ezetimibe 10 mg tablet 10 mg PO DAILY atorvastatin 40 mg tablet 40 mg PO DAILY apixaban 5 mg tablet 5 mg PO BID aspirin 81 mg Tablet,Delayed Release (Dr/Ec) 81 mg PO DAILY magnesium oxide 400 mg (241.3 mg magnesium) Tablet 400 mg PO DAILY 30 Days Qty: 30 0RF torsemide 20 mg tablet 20 mg PO Q48H 30 Days Qty: 15 0RF bisoprolol fumarate 10 mg tablet 5 mg PO DAILY 30 Days Qty: 15 0RF Patient Comments: TAKE 1 TABLET BY MOUTH TWICE DAILY Referrals Follow up/Referrals: Provider,Referral, MD [Primary Care Provider] - See instructions Activity Restrictions/Add. Instructions Additional Instructions/Restrictions: Follow-up with your family doctor to discuss diuretics (pill) these for fluid overload. Call your family doctor to establish care for this visit to the emergency department and schedule follow-up within 48 hours to ensure improvement. If you have any worsening of your condition or any other concerning signs or symptoms, return to the emergency department or your primary care doctor for further evaluation. Clinical Impressions Clinical Impression: Chest pain Discharge ED Provider: Landon Hernández General Adult HPI General Chief complaint: PAIN Stated complaint: back pain Time Seen by Provider: 07/03/23 15:36 Mode of Arrival: EMS Source of Information: Patient Limitations: No Limitations Description of Symptoms (Recalled from ER Triage Doc. by RN): pt to ed c/o pain between shoulder blades that started yesterday. pt denies cp or SOA. History of Present Illness HPI narrative: 83-year-old female history of hypertension, hyperlipidemia CAD status post SD and three-vessel CABG, PAF with pacemaker placed, currently on Eliquis, COPD on 3 L nasal cannula at home presenting with chest pain. Patient states that she started having chest pain substernal, radiating to right shoulder about 2 hours prior to arrival. Last time this pain was having heart attack. Denies nausea or vomiting, diaphoresis, but did have shortness of breath associated with it. Got full dose aspirin on the way here. Patient states that she is still symptomatic shortness of breath, but is not having chest pain on arrival. Related Data Home Medications Medication Instructions Recorded Confirmed calcium carb,calcium gluconate 500 1 tab PO DAILY Supplement 01/27/23 06/06/23 mg-vit D2 5 mcg (200 unit) tablet ferrous sulfate 325 mg (65 mg 325 mg PO DAILY iron supplement 01/27/23 06/06/23 iron) tablet mecobalamin (vitamin B12) 5,000 5,000 mcg PO DAILY b12 supplement 01/27/23 06/06/23 mcg chewable tablet vitamin E (dl, acetate) 180 mg 180 mg PO DAILY supplement 01/27/23 06/06/23 (400 unit) capsule apixaban 5 mg tablet 5 mg PO BID Blood Thinner/atrial 02/08/23 06/06/23 fib atorvastatin 40 mg tablet 40 mg PO DAILY Cholesterol 02/08/23 06/06/23 ezetimibe 10 mg tablet 10 mg PO DAILY Cholesterol 02/08/23 06/06/23 aspirin 81 mg tablet,delayed 81 mg PO DAILY Heart Disease 02/09/23 06/06/23 release Previous Rx's Medication Instructions Recorded dapagliflozin propanediol 5 mg 5 mg PO DAILY Heart Failure #90 04/16/23 tablet (Farxiga) tabs magnesium oxide 400 mg (241.3 mg 400 mg PO DAILY 30 days #30 tabs 05/29/23 magnesium) tablet bisoprolol fumarate 10 mg tablet 5 mg PO DAILY 30 days #15 tabs 06/10/23 torsemide 20 mg tablet 20 mg PO Q48H fluid/heart failure 06/10/23 30 days #15 tabs Allergies Allergy/AdvReac Type Severity Reaction Status D
[2023-07-03 16:07] LABS: Basophils # 0.1 K/mm3 (0-0.2); Basophils % 0.8 % (0.1-2.0); Eosinophils # 0.4 K/mm3 (0.0-0.4); Eosinophils % 5.4 % (0.1-12.0); Hematocrit 33.7 % (37.0-47.0); Hemoglobin 10.7 g/dL (12.2-16.2); Lymphocytes # 2.3 K/mm3 (0.7-4.5); Lymphocytes % 31.7 % (10-50); Mean Corpuscular HGB Conc 31.7 g/dL (31.8-35.4); Mean Corpuscular Hemoglobin 26.4 pg (27.0-31.2); Mean Corpuscular Volume 83.5 fl (81-99); Mean Platelet Volume 7.5 fl (7.4-10.4); Monocytes # 0.4 K/mm3 (0.1-1.0); Monocytes % 4.8 % (1.7-9.3); Neutrophils # 4.1 K/mm3 (1.8-7.8); Neutrophils % 57.3 % (37.0-80.0); Platelet Count 285 K/mm3 (142-424); Red Blood Count 4.04 M/mm3 (4.20-5.40); Red Cell Distribution Width 16.8 % (11.5-17.5); White Blood Count 7.1 K/mm3 (4.8-10.8)
[2023-07-03 16:14] LABS: Alanine Aminotransferase 20 U/L (12-78); Albumin Level 3.5 g/dl (3.5-5.0); Albumin/Globulin Ratio 0.9 (1.1-1.8); Alkaline Phosphatase 82 U/L (38-126); Anion Gap 2.2 mEq/L (5-15); Aspartate Amino Transferase 35 U/L (14-36); Bilirubin,Total 0.3 mg/dl (0.2-1.3); Blood Urea Nitrogen 14 mg/dl (7-17); Calcium 8.6 mg/dl (8.4-10.2); Carbon Dioxide 39 mmol/L (22.0-30.0); Chloride 99 mmol/L (98-107); Creatinine Clearance Estimated 57 mL/min (50-200); Estimated Glomerular Filt Rate 48 ml/min (>60); GFR (African American) 58 ML/MIN (>60); Globulin 3.9 g/dL (1.3-3.2); Glucose 101 mg/dl (74-100); Potassium 4.2 mmoL/L (3.5-5.1); Sodium 136 mmol/L (136-145); Total Protein,Serum 7.4 g/dl (6.3-8.2)
[2023-07-03 16:26] LABS: NT Pro Brain Natriuretic Pep. 1750 pg/mL (0-450)
[2023-07-03 16:31] LABS: T4 (Thyroxine) 11.5 ug/dl (5.53-11.0)
[2023-07-03 16:37] LABS: Troponin I < 0.01 ng/ml (0.00-0.034)
--- NOTE | 2023-07-03 16:41 | PC.NURSE ---
rounded on pt helped her use bedside commode and back to bed she was given a pillow no other needs at this time call light at bs
[2023-07-03 16:44] LABS: Thyroid Stimulating Hormone 0.67 uIU/mL (0.465-4.68)
--- NOTE | 2023-07-03 16:50 | ECG_ITS ---
APPROVED REPORT Exam: Resting ECG HR:67 bpm ECG Measurements Heart Rate 67 AXES TX 185 P 240 QRSd 101 QRS 26 QT 399 T 26 QTc 414 Conclusion ELECTRONIC ATRIAL PACEMAKER POSSIBLE ANTERIOR MYOCARDIAL INFARCTION , PROBABLY OLD [30 ms Q WAVE IN V3/V4, OR R < 0.2 mV IN V4] ABNORMAL RHYTHM ECG UNCONFIRMED REPORT Electronically signed by : Ruben Johnson MD 07/04/2023 14:46:18
--- NOTE | 2023-07-03 18:52 | PC.NURSE ---
helped pt to bedside commode and back to bed no other needs at this time call light at bs
[2023-07-03 19:16] LABS: Troponin I < 0.01 ng/ml (0.00-0.034)
--- NOTE | 2023-07-03 20:03 | PC.NURSE ---
assisted patient to bed side commode at this time.
== END 2023-07-03 21:27 | disposition home or self-care (01) ==
PROVIDERS: Emergency Provider Emergency Medicine
DX: R07.9 Chest pain, unspecified (principal); M25.511 Pain in right shoulder; R06.02 Shortness of breath; I11.0 Hypertensive heart disease with heart failure; I50.9 Heart failure, unspecified; E78.5 Hyperlipidemia, unspecified; I25.10 Atherosclerotic heart disease of native coronary artery without angina pectoris; J44.9 Chronic obstructive pulmonary disease, unspecified; I48.0 Paroxysmal atrial fibrillation; I25.2 Old myocardial infarction; Z79.01 Long term (current) use of anticoagulants
CPT/HCPCS: 36415; 71045; 80053; 83880; 84436; 84443; 84484; 85025; 93005; 96374; 99285